=== PATIENT | male | born 1955 | race Caucasian/White ===

== ENCOUNTER 2016-09-15 05:16 | Emergency (ER) | payer OTHER ==
[~2016-09-15] VITALS: Ht 167.6 cm; Wt 70.8 kg
[~2016-09-15 05:16] MED LIST: ASPIRIN EC81 MG PO; ATIVAN1 MG PO; CIALIS5 MG PO; DEXAMETHASONE4 MG PO; IMODIUM A-1 MG/7.5 M PO; LAMISIL250 MG PO; MISOPROSTOL200 MCG PO; NAPROSYN500 MG PO; NITROGLYCERIN0.4 MG SL; ONDANSETRON ODT8 MG PO; PERCOCET 7.5-31 EACH PO; PREDNISONE20 MG PO; PRILOSEC20 MG PO; SENNA8.6 MG PO; SIMVASTATIN80 MG PO; VIAGRA50 MG PO; VICODIN ES 7.51 EAC1 PO
[2016-09-15] MEDS ORDERED: TRAMADOL HCL50 MG PO (06:05)
[2016-09-15] MEDS ORDERED: CLINDAMYCIN HC300 MG PO (06:05)
[2016-12-06] MEDS ORDERED: OMEPRAZOLE20 M1 PO (08:53)
[2016-12-06] MEDS ORDERED: DEPO-TESTO100 MG/1 M IM (08:53)
== END 2016-09-15 06:15 | disposition home or self-care (01) ==
LOC: ED 05:16
DX: K11.21 Acute sialoadenitis (principal); E78.00 Pure hypercholesterolemia, unspecified; Z85.05 Personal history of malignant neoplasm of liver; Z88.0 Allergy status to penicillin; Z88.8 Allergy status to other drugs, medicaments and biological substances; Z79.899 Other long term (current) drug therapy; Z79.82 Long term (current) use of aspirin; Z87.891 Personal history of nicotine dependence
CPT/HCPCS: 99283

== ENCOUNTER 2018-11-04 08:17 | Observation (INO) | payer MEDICARE, OTHER ==
[~2018-11-04] VITALS: Ht 167.6 cm; Wt 61.7 kg
[~2018-11-04 08:17] MED LIST changes: +CLINDAMYCIN HC300 MG PO; +COZAAR100 MG PO; +DEPO-TESTO200 MG/1 M IM; +DIPHENOXYLATE-1 EACH PO; +FLOMAX0.4 MG PO; +GAS-X125 MG PO; +IRON160 MG PO; +LEVOTHYROXINE25 MCG PO; +LISINOPRIL5 MG PO; +OMEPRAZOLE20 M1 PO; +PEPCID20 MG PO; +STIVARGA40 MG PO; +TESSALON PERLE100 MG PO; +TOBRAMYCIN-DEXAM5 ML OPTH; +TRAMADOL HCL50 MG PO
--- OUTSIDE RECORDS SUMMARY | 2018-11-04 08:20 | XMS ---
PreManage Notification: GREY NOE Security [place] [employer] Events No recent Security Events currently on file CRITERIA MET - [facility] PROVIDERS Adama Patrick MD Treatment Current PHONE: Unknown [facility] Other [facility] PHONE: Unknown Yunior has no Care Guidelines for this patient. [place] VISIT COUNT (12 MO.) 1 PATRICIA Lay TOTAL 1 NOTE: Visits indicate total known visits. ED/UCC VISIT TRACKING (12 MO.) 11/04/2018 08:17 PATRICIA [facility] [place] TYPE: Emergency COMPLAINT: - FLANK PAIN INPATIENT VISIT TRACKING (12 MO.) No inpatient visits to display in this time frame [email or web address]
--- NOTE | 2018-11-04 14:26 | NUR ---
STARTED BLOOD TRANSFUSION. EDUCTION ON WHAT TO EXPECT, WHAT TO REPORT. PT VERBALIZED UNDERSTANDING. RN IN ROOM FOR 15 MINUTES. NO REPORTS OF ADVERSE REACTIONS. PT TOLERATING WELL.
--- NOTE | 2018-11-04 15:15 | NUR ---
PT SLEEPING, BLOOD TRANSFUSING WELL. NO ADVERSE REACTIONS NOTED.
--- NOTE | 2018-11-04 16:36 | NUR ---
STARTED SECOND UNIT OF BLOOD. PT TOLERATED FIRST UNIT WELL. NO REPORTS OF ADVERSE SIDE EFFECTS. PT UP TO VOID. REMINDED PT TO MEASURE VOID. PT BACK TO SLEEP.
--- NOTE | 2018-11-04 17:45 | NUR ---
PT IS TOLERATING BLOOD TRANSFUSION WELL. NO COMPLAINTS OF ITCHINESS, HEADACHE, NAUSEA, PAIN.
--- NOTE | 2018-11-04 19:15 | NUR ---
RECEIVED REPORT FROM DAY SHIFT RN. PATIENT IS RESTING IN BED. PATIENT DENIES ANY PAIN. NO NEEDS NOTED. CALL LIGHT IN REACH.
--- NOTE | 2018-11-04 20:45 | NUR ---
PATIENT IS RESTING IN BED. PATIENT IS READY FOR NIGHT MEDICATIONS AND TO GO TO BED. ASKED JOELLEN RN TO TAKE VITALS. PATIENT DENIES ANY NEEDS. CALL LIGHT IN REACH.
--- NOTE | 2018-11-04 21:25 | NUR ---
GAVE REPORT TO CAROL AU AT BEDSIDE. PATIENT DENIES ANY NEEDS. CALL LIGHT IN REACH. CAROL AU REMAINS IN THE ROOM.
--- NOTE | 2018-11-04 21:41 | NUR ---
PT RESTING IN BED AWAKE. ASSESSMENT COMPLETE. HR REGULAR RHYTHM. PT DENIES PAIN AT THIS TIME. PORT FLUSHED WNL, GOOD BLOOD RETURN. IVF INFUSING WNL ORDERED. CALL LIGHT IN REACH. LIGHTS OFF IN ROOM. BED ALARM IN PLACE.
--- NOTE | 2018-11-04 23:00 | NUR ---
SBA TO THE BATHROOM. PATIENT US BACK IN BED. BED ALARM ON. CALL LIGHT IN REACH.
--- NOTE | 2018-11-05 00:26 | NUR ---
CHECKED ON PT. RESTING IN BED WITH EYES CLOSED. BREATHING EQUAL AND UNLABORED. LIGHTS OFF IN ROOM. BED ALARM IN PLACE. IVF INFUSING PORT ORDERED.
--- NOTE | 2018-11-05 01:54 | NUR ---
CALL LIGHT ANSWERED. SBA TO RESTROOM FOR VOID AND BACK TO BED. VSS. PT DENIES PAIN AT THIS TIME. ASSESSMENT COMPLETE. IVF INFUSING PORT ORDERED. CALL LIGHT IN REACH. BED ALARM ON.
--- NOTE | 2018-11-05 03:54 | NUR ---
CALL LIGHT ANSWERED, SBA TO RESTROOM FOR VOID. GAIT STEADY. SAHHBAZ CUENCA REMAINS IN ROOM.
--- NOTE | 2018-11-05 03:56 | NUR ---
CALL LIGHT ANNSWERED. 1 SBA TO THE BATHROOM.
--- NOTE | 2018-11-05 05:37 | NUR ---
LABS DRAWN FROM PORT AND SENT TO LAB, FLUSHED WNL. NEW BAG IVF INFUSING ORDERED. BREAKFAST ORDER OBTAINED. PT DENIES ANY REQUESTS AT THIS TIME. CALL LIGHT IN REACH. LIGHTS OFF IN ROOM. VSS.
--- NOTE | 2018-11-05 05:46 | NUR ---
PT RESTED WELL IN BED THROUGHOUT SHIFT. SBA TO RESTROOM FOR QS VOIDS. IVF INFUSING PORT WNL, BRISK BLOOD RETURN. USING CALL LIGHT APPROPRIATELY.
[2018-11-05] MEDS ORDERED: LEVOTHYROXINE50 MCG PO (09:03)
[2018-11-05] MEDS ORDERED: FAMOTIDINE40 MG PO (09:06)
--- NOTE | 2018-11-05 09:30 | NUR ---
PT SITTING UP IN BED WATCHING TV. ATE MOST OF BREAKFAST, XOCHITL WELL. PT DENIES PAIN OR OTHER CONCERNS AT THIS TIME. ALERT AND ORIENTED. LEFT CHEST PORT ACCESSED AND DRESED WITH PAPER TAPE. DRESSING CDI. CALL LIGHT WITHIN REACH.
--- NOTE | 2018-11-05 11:56 | NUR ---
MED REC COMPLETE
--- NOTE | 2018-11-05 12:20 | NUR ---
PT SITTING UP IN BED. ONLY ATE A SMALL AMOUNT OF LUNCH. DENIES NEEDS OR CONCERNS AT THIS TIME. SBA TO RESTROOM. PT HAS REPORTED BMX3 THIS SHIFT. CALL LIGHT WITHIN REACH.
--- NOTE | 2018-11-05 12:26 | NUR ---
PT SITTING UP IN BED, ALERT, ORIENTED AND WATCHING TV. HE MENTIONED THAT HE SHOULD HAVE COME IN SOONER, BUT GLAD HE CAME WHEN HE DID. PT STILL HAS A QUICK WIT, AND HAS THE ABILITY TO REMAIN CALM AND DEAL WITH DIFFICULT SITUATIONS THEY ARISE. GAVE PT A G.POST, PT REQUESTED PRAYER. WILL FOLLOW NEEDED
--- NOTE | 2018-11-05 15:20 | NUR ---
PT APPEARS TO BE SLEEPING. EYES CLOSED, RESP EVEN AND UNLABORED.
--- NOTE | 2018-11-05 17:43 | NUR ---
PT SITTING UP IN BED EATING DINNER. DENIES PAIN OR OTHER CONERNS. CALL LIGHT WITHIN REACH.
--- NOTE | 2018-11-05 20:20 | NUR ---
RECEIVED REPORT FROM DAY SHIFT RN. PATIENT IS RESTING IN BED. PATIENT DENIES ANY NEEDS. CALL LIGHT IN REACH.
--- NOTE | 2018-11-05 22:10 | NUR ---
PATIENT ASSESMENT COMPLETED. PATIENT IS RESTING IN BED. EVENING MEDICATIONS GIVEN PER ORDER. PATIENT DENIES ANY PAIN. PATIENT DENIES ANY SOB. EVENINM MEDICATONS GIVEN PER ORDER. PATIENT HAS SLIGHTLY ELEVATED TEMP BUT STILL BELOW CALL PARAMETERS. PATIENT REFUSED TYLENOL. VITALS TAKEN AND RECORDED. INTAKE AND OUPUT RECORDED. PATIENT COMPLAINED OF PAINFUL LOOSE BM. PATIENT STATED "IT FEELS LIKE FIRE WHEN IT CAME OUT." PATIENT FLUSHED BM THEREFORE THIS RN COULD NOT OBSERVE BM. EDUCATED PATIENT TO CALL WITH NEXT BM. PATIENT DENIES ANY ABD DISCOMFORT OR NAUSEA. PATIENT DENIES ANY NEEDS. PATIENT HOWEVER COMPLAINS OF A COUGH. CALL LIGHT IN REACH.
--- NOTE | 2018-11-05 22:22 | NUR ---
PLACED CALL TO MD TO REQUEST MEDICATION FOR PATIENTS COUGH. MD GAVE VERBAL ORDER. VERFIED VERBAL ORDER USING THE READBACK METHOD.
--- NOTE | 2018-11-05 22:52 | NUR ---
PATIENT GIVEN PRN MEDICATON PER MAR FOR COUGH. PATIENT DENIES ANY FURTHER NEEDS. CALL LIGHT IN REACH.
--- NOTE | 2018-11-06 00:32 | NUR ---
PATIENT IS RESTING IN BED WITH EYES CLOSED, RR 17. CALL LIGHT IN REACH.
--- NOTE | 2018-11-06 03:15 | NUR ---
PATIENT IS RESTING IN BED WITH EYES CLOSED, RR 17. CALL LIGHT IN REACH.
--- NOTE | 2018-11-06 04:55 | NUR ---
PATIENT RESTED WELL THROUGHOUT THE SHIFT. PATIENT IS ON A 2GM NA LIMIT, TOLERATING WELL, DECREASED APPETITE NOTED-ENSURE PROVIDED. PATIENT IS INDEPENDENT IN THE ROOM. IV INFUSING PER ORDER. PATIENT IS ON RA. PATIENT DENIES PAIN. PATIENT IS AAOX3 AND USES CALL LIGHT APPROPRIATELY. RECEIVED PRN COUGH MEDICATION X1.
--- NOTE | 2018-11-06 06:07 | NUR ---
PT DRESSING CHANGED ON L SIDED PORT-A-CATH. NO SIGNS OF INFECTION. PT STATES NO DISCOMFORT. GOOD BLOOD RETURN. FLUSHES EASILY. LABS DRAWN. INFUSING PER ORDER. VS/INPUT OUTPUT RECORDED. PT STATES NO ADDITIONAL NEEDS AT THIS TIME.
--- NOTE | 2018-11-06 07:15 | NUR ---
BEDSIDE HANDOFF REPORT RECEIVD FROM VEHICLE WINDOW TINTER RN. PT SLEEPING, LEFT UNDISTURBED.
[2018-11-06] MEDS ORDERED: FAMOTIDINE40 MG PO (09:13)
--- NOTE | 2018-11-06 09:22 | NUR ---
IMPLANTED PORT FLUSHED WITH 20 ML NS AND 500 UNITS HEPRIN, PORT DEACCESSED FOR DISCHARGE. PT SET UP FOR SHOWER BEFORE DISCHARGE. PT DENIES OTHER NEEDS AT THIS TIME.
--- NOTE | 2018-11-06 13:05 | NUR ---
MET WITH PT HE WAS WAITING FOR HIS CARERIDE HOME.PT SHARED HE WILL DO ONE LAST DIFFERENT CHEMO DRUG. IN HIS MIND, SOME CHANCE IS BETER THAN NONE, AND MOST PT ON THIS CHEMO HAVE SEVERE SIDE EFFECTS, BUT SOME DON'T! HE IS HOPING AND PRAYING TO BE THE SOME. HAD GOOD VISIT WITH PT, HE IS WEAK. I ENCOURAGED HIM TO STAY IN TOUCH WITH HIS SON, HE AGREED. EXTENDED A BLESSING, WILL ALSO FOLLOW NEEDED
== END 2018-11-06 10:25 | disposition home or self-care (01) ==
LOC: ED 08:17 → MS 08:18
PROVIDERS: ADMIT Internal Medicine
DX: C18.9 Malignant neoplasm of colon, unspecified (principal); D63.0 Anemia in neoplastic disease; N17.9 Acute kidney failure, unspecified; C79.51 Secondary malignant neoplasm of bone; C78.7 Secondary malignant neoplasm of liver and intrahepatic bile duct; C77.0 Secondary and unspecified malignant neoplasm of lymph nodes of head, face and neck; E03.9 Hypothyroidism, unspecified; N40.0 Benign prostatic hyperplasia without lower urinary tract symptoms; I10 Essential (primary) hypertension; K21.9 Gastro-esophageal reflux disease without esophagitis; D72.829 Elevated white blood cell count, unspecified; G89.3 Neoplasm related pain (acute) (chronic); Z66 Do not resuscitate; Z87.891 Personal history of nicotine dependence; Z79.82 Long term (current) use of aspirin; Z79.899 Other long term (current) drug therapy; Z88.0 Allergy status to penicillin; Z88.8 Allergy status to other drugs, medicaments and biological substances; Z95.1 Presence of aortocoronary bypass graft
CPT/HCPCS: 36430; 74176; 80053; 81001; 82378; 82570; 82607; 82728; 82746; 83540; 83615; 83690; 84300; 84466; 84540; 85025; 86850; 86900; 86901; 86920; 96361; 96365; 96372; 99284-25; G0378; J0696; J1650; J7030; J7120; P9016

== ENCOUNTER 2018-12-04 07:37 | Emergency (ER) | payer MEDICARE, OTHER ==
[~2018-12-04] VITALS: Ht 167.6 cm; Wt 68.0 kg
--- OUTSIDE RECORDS SUMMARY | ~2018-12-04 | XMS | Encounter Summary ---
Demographics + + + | Address | [id number] [place] [address] St | | | [place] [address] | + + + | Home Phone | | + + + | Preferred Language | Unknown | + + + | Marital Status | Single | + + + | Buddhism Affiliation | Unknown | + + + | Race | White | + + + | Ethnic Group | Not or | + + + Author + + + | Author | [facility] | + + + | Organization | [facility] | + + + | Address | Unknown | + + + | Phone | Unavailable | + + + Support + + +---------+ + | Name | Relationship | Address | Phone | + + +---------+ + | [place] | ECON | Unknown | Unavailable | + + +---------+ + Care Team Providers + +------+ + | Care Pleater Hand Name | Role | Phone | + +------+ + | Adama Patrick MD | PCP | | + +------+ + Reason for Visit + + + | Reason | Comments | + + + | Tx Recommendation | | | Tracking | | + + + Encounter Details +--------+ + + + + | Date | Type | Department | Care Team | Description | +--------+ + + + + | 07/21/ | Abstract | [facility] | Adriana Briones | Tx Recommendation | | 2015 | | [place] [id number] | MD [place] [address] | Tracking | | | | [address] | Ave [place], [place] | | | | | Mailcode: [place] | [phone] | | | | | [facility] and | [phone] | | | | | [place] [address] | | | | | | [place], [place] | | | | | | [address] | | | | | | [phone] | | | +--------+ + + + + Social History + + + +--------+ + | Tobacco Use | Types | Packs/Day | Years | Date | | | | | Used | | + + + +--------+ + | Former Smoker | Cigarettes | 1 | 20 | Quit: 12/18/1994 | + + + +--------+ + + +---+---+---+ | Smokeless Tobacco: | | | | | Former User | | | | + +---+---+---+ + + | Comments: reports quit a while ago, but smoked for "many years" | + + + + +---------+ + | Alcohol Use | Drinks/Week | oz/Week | Comments | + + +---------+ + | No | | | quit 6 months ago, | | | | | used to drink 6-12 | | | | | beers/day | + + +---------+ + + + + | Sex Assigned at | Date Recorded | | | | + + + | Not on file | | + + + + + + + | Job Start Date | Occupation | Industry | + + + + | Not on file | Not on file | Not on file | + + + + + + + + | Travel History | Travel Start | Travel End | + + + + + + | No recent travel history available. | + + documented as of this encounter Plan of Treatment Not on filedocumented as of this encounter Visit Diagnoses Not on filedocumented in this encounter
--- OUTSIDE RECORDS SUMMARY | ~2018-12-04 | XMS | Encounter Summary ---
Demographics + + + | Address | [address] [place] [address] St | | | [place] [address] | + + + | Home Phone | | + + + | Preferred Language | Unknown | + + + | Marital Status | Single | + + + | Lutheran Affiliation | Unknown | + + + | Race | White | + + + | Ethnic Group | Not or | + + + Author + + + | Author | [facility] | + + + | Organization | [facility] | + + + | Address | Unknown | + + + | Phone | Unavailable | + + + Support + + +---------+ + | Name | Relationship | Address | Phone | + + +---------+ + | Keri Lake | ECON | Unknown | Unavailable | + + +---------+ + Care Team Providers + +------+ + | Care Lean Facilitator Name | Role | Phone | + +------+ + | Luis Bermudez MD | PCP | | + +------+ + Reason for Referral Diagnostic Testing (Routine) + +--------+ + + + + | Status | Reason | Specialty | Diagnoses / | Referred By | Referred To | | | | | Procedures | Contact | Contact | + +--------+ + + + + | New Request | | Radiology | Diagnoses | Majo, | | | | | | Liver | Sarah Ramirez MD | | | | | | metastases | [address] | | | | | | (HCC) | [facility] | | | | | | Neuroendocri | [address] | | | | | | ne tumor | [facility] [place] | | | | | | Procedures | [address] | | | | | | PET GA68 | Phone: | | | | | | DOTATATE | [phone] | | | | | | SKULL BASE | Fax: | | | | | | TO [facility] | [phone] | | + +--------+ + + + + Diagnostic Testing (Routine) + +--------+ + + + + | Status | Reason | Specialty | Diagnoses / | Referred By | Referred To | | | | | Procedures | Contact | Contact | + +--------+ + + + + | New Request | | Radiology | Diagnoses | Majo, | | | | | | Liver | Sarah Ramirez MD | | | | | | metastases | [address] | | | | | | (HCC) | [facility] | | | | | | Neuroendocri | [address] | | | | | | ne tumor | [place], [place] | | | | | | Procedures | [address] | | | | | | PET GA68 | Phone: | | | | | | DOTATATE | [phone] | | | | | | SKULL BASE | Fax: | | | | | | TO [facility] | [phone] | | + +--------+ + + + + Reason for Visit Diagnostic Testing (Routine) + +--------+ + + + + | Status | Reason | Specialty | Diagnoses / | Referred By | Referred To | | | | | Procedures | Contact | Contact | + +--------+ + + + + | New Request | | Radiology | Diagnoses | Majo, | | | | | | Liver | Sarah aRmirez MD | | | | | | metastases | [address] | | | | | | (HCC) | [facility] | | | | | | Neuroendocri | [address] | | | | | | ne tumor | [place], [place] | | | | | | Procedures | [address] | | | | | | PET GA68 | Phone: | | | | | | DOTATATE | [phone] | | | | | | SKULL BASE | Fax: | | | | | | TO [facility] | [phone] | | + +--------+ + + + + Encounter Details +--------+ + + + + | Date | Type | Department | Care Team | Description | +--------+ + + + + | 01/18/ | Hospital | Radiation Oncology | Sarah Kasper, | | | 2018 | Encounter | at [facility] [address] | [address] | | | | | [facility] | [place] [address] | | | | | [facility] | [place] [address] | | | | | [facility] | [phone] | | | | | [place], [place] | | | | | | [address] | | | | | | [phone] | | | +--------+ + + + [...] + + documented as of this encounter Medications at Time of Discharge + + + +---------+--------+ + | Medication | Sig | Dispensed | Refills | Start | End Date | | | | | | Date | | + + + +---------+--------+ + | aspirin EC 81 mg | Take 81 mg by mouth | | 0 | | | | Oral tablet,delayed | once daily. | | | | | | release (DR/EC) | | | | | | + + + +---------+--------+ + | Gallium Nitrate 25 | Inject into the | | 0 | | | | mg/mL Intravenous | vein (IV). Patient | | | | | | Solution | reports gallium | | | | | | | maltolate ("special | | | | | | | mix") from family | | | | | | | member. | | | | | + + + +---------+--------+ + | loperamide 2 mg | Take 2 mg by mouth | | 0 | | | | Oral capsule | four times daily as | | | | | | | needed. | | | | | + + + +---------+--------+ + | LORazepam 1 mg | Take 1 mg by mouth | | 0 | | | | Oral tablet | every four hours as | | | | | | | needed. | | | | | + + + +---------+--------+ + | omeprazole 20 mg | Take 20 mg by mouth | | 0 | | | | Oral capsule,delayed | once daily. | | | | | | release(/DOMINIC) | | | | | | + + + +---------+--------+ + | sildenafil 10 mg | Take by mouth. | | 0 | | | | Oral tablet | | | | | | + + + +---------+--------+ + | simvastatin 80 mg | Take 80 mg by mouth | | 0 | | | | Oral tablet | once daily in the | | | | | | | evening. | | | | | + + + +---------+--------+ + documented as of this encounter Plan of Treatment Not on filedocumented as of this encounter Procedures + +--------+ + + + | Procedure Name | Priori | Date/Time | Associated Diagnosis | Comments | | | ty | | | | + +--------+ + + + | PET GA68 DOTATATE | Routin | 01/18/2018 | Liver metastases | Results for this | | SKULL BASE TO | e | 1:22 PM | (HCC) | procedure are in the | | [facility] | | PST | Neuroendocrine tumor | results section. | + +--------+ + + + | ORDERS OTHER | | 01/18/2018 | | Results for this | | | | 12:00 AM | | procedure are in the | | | | PST | | results section. 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 This PET/CT scan is requested for | | | evaluation of response to therapy. COMPARISON: Outside PET imaging | | | from 12/17/2017 is not available for review. Comparison made to FDG | | | PET 04/25/2017 TECHNIQUE: Radiopharmaceutical: 4.5 mCi of | | | 68-Ga DOTATATE, injected via a right antecubital intravenous | | | injection. Anatomical region: vertex to midthighs. After an | | | uptake period of 60 minutes, a low-dose, non-contrast CT scan was | | | performed for attenuation correction and anatomic localization. | | | Immediately following, and without moving the patient, PET imaging was | | | performed. Axial, sagittal, and coronal images were available for | | | review. FINDINGS: Head and neck: Physiologic uptake is | | | seen in the pituitary and salivary glands. There are no | | | pathologically enlarged lymph nodes. The thyroid gland is | | | unremarkable. Thorax: There are no suspicious pulmonary nodules. | | | No foci of abnormal uptake or pathologically enlarged mediastinal, | | | hilar, or axillary lymphadenopathy. Left upper lobe subpleural | | | granuloma is unchanged. Left chest Port-A-Cath tip terminates at the | | | superior cavoatrial junction. Abdomen and pelvis: Physiologic | | | uptake in the spleen, adrenal glands, and bowel. Physiologic | | | radiotracer clearance is seen in the urinary system. No abnormal foci | | | of uptake. No pathologically enlarged lymphadenopathy. The | | | abdominal aorta is normal in caliber. There is physiologic uptake | | | throughout the liver. The large, FDG avid, hypodense lesions in both | | | lobes of the liver have significantly increased since 04/25/17, but | | | don't show DOTATATE uptake. Physiologic uptake in the uncinate | | | process Musculoskeletal: No suspicious osseous lesions. | | | Changes of prior median sternotomy. There is nonspecific faint | | | DOTATATE uptake and faint sclerosis in the left iliac bone, unchanged | | | from prior. IMPRESSION: Increase in size of hepatic | | | metastases compared to prior PET/CT, the lesions showed FDG uptake | | | previously but do not display somatostatin receptor expression. This | | | rules out well-differentiated neuroendocrine tumor, but can be seen | | | with either de-differentiated neuroendocrine tumor or other | | | malignancies. I have personally reviewed the images and, if | | | necessary, edited the report. I agree with the report as now | | | presented. Final signature: Maribell Slater MD 01/18/2018 6:24 | | | PM Preliminary: Joseph Torres MD 01/18/2018 3:59 PM Dictation | | | initiated: Joseph Torres MD 01/18/2018 2:17 PM | | + + + + + | Procedure Note | + + | Service Account, Radiant Res In Interface - 01/18/2018 6:25 PM PST Ga-68 DOTATATE | | PET-CT: 01/18/2018 1:22 PM CLINICAL HISTORY: 62 years of age, Male, with history of | | possible colon cancer metastatic to liver, with liver biopsy 2015 more consistent with | | atypical presentation neuroendocrine tumor, now status post multiple rounds of | | chemotherapy, with evidence of disease progression on chemotherapy on most recent PET | | 12/17/2017 . This PET/CT scan is requested for evaluation of response to therapy. | | COMPARISON: Outside PET imaging from 12/17/2017 is not available for review. Comparison | | made to FDG PET 04/25/2017 TECHNIQUE: Radiopharmaceutical: 4.5 mCi of 68-Ga DOTATATE, | | injected via a right antecubital intravenous injection. Anatomical region: vertex to | | midthighs.After an uptake period of 60 minutes, a low-dose, non-contrast CT scan was | | performed for attenuation correction and anatomic localization. Immediately following, | | and without moving the patient, PET imaging was performed. Axial, sagittal, and coronal | | images were available for review. FINDINGS: Head and neck: Physiologic uptake is seen | | in the pituitary and salivary glands. There are no pathologically enlarged lymph nodes. | | The thyroid gland is unremarkable. Thorax: There are no suspicious pulmonary nodules. No | | foci of abnormal uptake or pathologically enlarged mediastinal, hilar, or axillary | | lymphadenopathy. Left upper lobe subpleural granuloma is unchanged. Left chest | | Port-A-Cath tip terminates at the superior cavoatrial junction. Abdomen and pelvis: | | Physiologic uptake in the spleen, adrenal glands, and bowel.Physiologic radiotracer | | clearance is seen in the urinary system.No abnormal foci of uptake.No pathologically | | enlarged lymphadenopathy.The abdominal aorta is normal in caliber. There is physiologic | | uptake throughout the liver. The large, FDG avid, hypodense lesions in both lobes of the | | liver have significantly increased since 04/25/17, but don't show DOTATATE | | uptake.Physiologic uptake in the uncinate process Musculoskeletal: No suspicious osseous | | lesions. Changes of prior median sternotomy. There is nonspecific faint DOTATATE uptake | | and faint sclerosis in the left iliac bone, unchanged from prior. IMPRESSION: | | Increase in size of hepatic metastases compared to prior PET/CT, the lesions showed FDG | | uptake previously but do not display somatostatin receptor expression. This rules out | | well-differentiated neuroendocrine tumor, but can be seen with either de-differentiated | | neuroendocrine tumor or other malignancies. I have personally reviewed the images | | and, if necessary, edited the report. I agree with the report as now presented. Final | | signature: Maribell Slater MD 01/18/2018 6:24 PM Preliminary: Joseph Torres MD | | 01/18/2018 3:59 PM Dictation initiated: Joseph Torres MD 01/18/2018 2:17 PM | |There is physiologic uptake throughout the liver. The large, FDG avid, hypodense lesions in both lobes of the liver have significantly increased since 04/25/17, but don't show DOTATATE uptake. | |Physiologic uptake in the uncinate process | | | |Musculoskeletal: | |No suspicious osseous lesions. | | | |Changes of prior median sternotomy. There is nonspecific faint DOTATATE uptake and faint sc lerosis in the left iliac bone, unchanged from prior. | | | |IMPRESSION: | | | |Increase in size of hepatic metastases compared to prior PET/CT, the lesions showed FDG upt mariana previously but do not display somatostatin receptor expression. This rules out well-diff erentiated neuroendocrine | |tumor, but can be seen with either de-differentiated neuroendocrine tumor or other malignan cies. | | | | | | | |I have personally reviewed the images and, if necessary, edited the report. I agree with th e report as now presented. | | | |Final signature: Maribell Slater MD 01/18/2018 6:24 PM | |Preliminary: Joseph Torres MD 01/18/2018 3:59 PM | |Dictation initiated: Joseph Torres MD 01/18/2018 2:17 PM | + + + +---------+ + + | Performing | Address | City/State/Zipcode | Phone Number | | Organization | | | | + +---------+ + + | [facility] | | | | | VOICE RECOGNITION 2 | | | | + +---------+ + + ORDERS OTHER (01/18/2018 12:00 AM PST) + + + | Narrative | Performed At | + + + | | | + + + documented in this encounter Visit Diagnoses + + | Diagnosis | + + | Liver metastases (HCC) Secondary malignant neoplasm of liver | + + | 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
--- OUTSIDE RECORDS SUMMARY | ~2018-12-04 | XMS | Encounter Summary ---
Demographics + + + | Address | [address] [place] [address] St | | | [place] [address] | + + + | Home Phone | | + + + | Preferred Language | Unknown | + + + | Marital Status | Single | + + + | Scientologist Affiliation | Unknown | + + + | Race | White | + + + | Ethnic Group | Not or | + + + Author + + + | Author | [facility] | + + + | Organization | [facility] | + + + | Address | Unknown | + + + | Phone | Unavailable | + + + Support + + +---------+ + | Name | Relationship | Address | Phone | + + +---------+ + | [place]eri [place] | ECON | Unknown | Unavailable | + + +---------+ + Care Team Providers + +------+ + | Care Painter Supervisor Name | Role | Phone | + +------+ + | Adama Patrick MD | PCP | | + +------+ + Reason for Visit + + + | Reason | Comments | + + + | Conference Report | 12-24-12 LALT recs | + + + Encounter Details +--------+ + + + + | Date | Type | Department | Care Team | Description | +--------+ + + + + | 12/25/ | Documentati | Surgical Oncology | Emely, | Conference Report | | 2012 | on | at [facility] [address] | MD Sukhdeep [address] | (12-24-12 [facility] | | | | [place] Mail Code: | [place], | recs) | | | | [facility] | [place] [address] | | | | | and Healing, | [phone] | | | | | [address] | | | | | | [place], [place] | | | | | | [address] | | | | | | [phone] | | | +--------+ + + + [...]
--- OUTSIDE RECORDS SUMMARY | ~2018-12-04 | XMS | Encounter Summary ---
Demographics + + + | Address | [address] [place] [address] St | | | [place] [address] | + + + | Home Phone | | + + + | Preferred Language | Unknown | + + + | Marital Status | Single | + + + | Bahai Affiliation | Unknown | + + + | Race | White | + + + | Ethnic Group | Not or | + + + Author + + + | Author | [facility] | + + + | Organization | [facility] | + + + | Address | Unknown | + + + | Phone | Unavailable | + + + Support + + +---------+ + | Name | Relationship | Address | Phone | + + +---------+ + | [place]eri [place] | ECON | Unknown | Unavailable | + + +---------+ + Care Team Providers + +------+ + | Care Photovoltaic Solar Cell Designer Name | Role | Phone | + +------+ + | Adama Patrick MD | PCP | | + +------+ + Reason for Visit + + + | Reason | Comments | + + + | New patient | | | consultation | | + + + Consultation (Routine) + +--------+ + + + + | Status | Reason | Specialty | Diagnoses / | Referred By | Referred To | | | | | Procedures | Contact | Contact | + +--------+ + + + + | Pending | | Surgical | Diagnoses | | | | Review | | Oncology | colon | Senthil, | Emely | | | | | cancer | Joseph Padilla, | MD Sukhdeep | | | | | w/liver mets | [address] | [address] | | | | | | [address] | Ave | | | | | | [place], | [place], [place] | | | | | | [place] [address] | [address] | | | | | | Phone: | Phone: | | | | | | [phone] | [phone] | | | | | | Fax: | Fax: | | | | | | [phone] | [phone] | + +--------+ + + + + Encounter Details +--------+---------+ + + + | Date | Type | Department | Care Team | Description | +--------+---------+ + + + | 12/18/ | Office | Surgical Oncology | Emely, | Liver lesion | | 2012 | Visit | at [facility] [address] | MD Sukhdeep [address] | (Primary Dx) | | | | [place] Mail Code: | [place], | | | | | [facility] | [place] [address] | | | | | and Healing, | [phone] | | | | | [address] | | | | | | [place], [place] | | | | | | [address] | | | | | | [phone] | | | +--------+---------+ + + + Social History + +-------+ +--------+ + | Tobacco Use | Types | Packs/Day | Years | Date | | | | | Used | | + +-------+ +--------+ + | Former Smoker | | | | Quit: 12/18/1994 | + +-------+ +--------+ + + +---+---+---+ | Smokeless Tobacco: | | | | | Former User | | | | + +---+---+---+ + + +---------+ + | Alcohol Use | Drinks/Week | oz/Week | Comments | + + +---------+ + | Not Asked | | | | + + +---------+ + + + [...] + + documented as of this encounter Last Filed Vital Signs + + + + + | Vital Sign | Reading | Time Taken | Comments | + + + + + | Blood Pressure | 122/79 | 12/18/2012 2:18 PM | | | | | PDT | | + + + + + | Pulse | 67 | 12/18/2012 2:18 PM | | | | | PDT | | + + + + + | Temperature | 37.1 C (98.7 F) | 12/18/2012 2:18 PM | | | | | PDT | | + + + + + | Respiratory Rate | 15 | 12/18/2012 2:18 PM | | | | | PDT | | + + + + + | Oxygen Saturation | - | - | | + + + + + | Inhaled Oxygen | - | - | | | Concentration | | | | + + + + + | Weight | 68.9 kg (151 lb 14.4 | 12/18/2012 2:18 PM | | | | oz) | PDT | | + + + + + | Height | - | - | | + + + + + | Body Mass Index | - | - | | + + + + + documented in this encounter Patient Instructions Patient Instructions Joelle Slaughter RN - 12/18/2012 2:52 PM PDTDr. Emely will revi ew your case at the Liver Tumor Conference and call you with the recommendations from the aurelia. Please call if you have any questions. [phone] signed by Joelle Slaughter RN at 12/18/2012 2:53 PM PDT documented in this encounter Progress Notes Sukhdeep Lopez MD - 12/18/2012 2:22 PM PDT SURGICAL ONCOLOGY CLINIC INITIAL CONSULTATION James Lake is an 57 y.o. male, who is referred by Joseph Ndiaye, for esther luation and management of multiple liver lesions. HPI: Mr. Lake is a 57 y.o. male who presented to his PCP in June 2012 with RUQ pain, weigh t loss and early satiety. CT scan was performed that demonstrated multiple liver lesions. He underwent a laparoscopic exploration by Dr. Collins in July 2012, on which a diffusely maligna nt liver was noted. Two biopsies were obtained from the liver and showed deposits of matt ocarcinoma . A [address] was noted on chest CT, however there was no evidence of pulmonary metastasis. His abdominal CT scan was re-reviewed and a potential primary mass wa s noted in the ascending colon. A PET scan was done in August and demonstrated diffusely malig nant liver metastasis and the same potential primary. Mr. Lake then received 6 cycles on FOLFOX/Avastin between August 14 and October 30 2012. His s ymptoms gradually improved during the course of chemotherapy and he was able to gain some we ight. PET/CT was repeated in October and showed overall decrease in liver size but more liver lesions. The SUV of the lesions has decreased from 8.17-10.17 to 3.48-4.10 Coronary artery disease Headache Arthritis Cancer Seizure Chronic pain VASECTOMY NASAL SEPTUM REPAIR Current Outpatient Prescriptions Medication aspirin EC 81 mg Oral tablet,delayed release (DR/EC) Gallium Nitrate 25 mg/mL Intravenous Solution loperamide 2 mg Oral capsule LORazepam 1 mg Oral tablet Milk Thistle 300 mg Oral capsule omeprazole 20 mg Oral capsule,delayed release(DR/EC) sildenafil 10 mg Oral tablet simvastatin 80 mg Oral tablet No current facility-administered medications for this visit. Allergies Allergen Reactions Penicillin G Rash Social History: History Substance Use Topics Smoking status: Former Smoker Quit date: 12/18/1994 Smokeless tobacco: Former User Alcohol Use: Not on file Family History Problem Relation Alcohol/Drug Brother Alcohol/Drug Maternal Grandfather Anesthesia Mother Anesthesia Father Anesthesia Maternal Grandmother Anesthesia Maternal Grandfather Anesthesia Paternal Grandmother Anesthesia Paternal Grandfather Diabetes Mother Diabetes Paternal Grandmother GI Father GI Paternal Grandfather Heart Disease Father Heart Disease Paternal Grandmother Heart Disease Paternal Grandfather Psychiatry Brother Stroke Maternal Grandmother Alcohol/Drug Son Alcohol/Drug Maternal Aunt Alcohol/Drug Maternal Cousin Allergies Maternal Cousin Anesthesia Maternal Cousin Anesthesia Paternal Uncle Anesthesia Maternal Uncle Anesthesia Maternal Aunt Allergies Paternal Cousin Anesthesia Paternal Uncle Arthritis Paternal Uncle Asthma Paternal Uncle Asthma Paternal Cousin GI Maternal Aunt GI Paternal Uncle Heart Disease Paternal Uncle Heart Disease Paternal Cousin Stroke Maternal Uncle Review of Systems: All other systems negative. Examination: BP 122/79 | Pulse 67 | Temp (Src) 37.1 C (98.7 F) (Oral) | RR 15 | Wt 68.9 01 kg (151 lb 14.4 oz) General: Healthy appearing but overweight. Appearing their stated age. Eyes: Sclerae anicteric. ENMT: No oral lesions. Neck: Supple, no carotid bruits,no thyromegaly. Cardiac: Regular rate and rhythm, S1 S2 Nl, no M/R/G/. Chest: CTA Bilaterally. Lymph nodes: No lymphadenopathy in the neck supraclavicular or other areas. Extremities: 2/2 bilateral pulses, no edema. Skin: Warm, dry, no rashes or lesions, no spider angiomata. Neuro: A & 0 *3, non-focal Psych: Alert and oriented and appropriate in all spheres. Abdomen: Bowel sounds present, soft, NT/ND, no Hepatosplenomegaly. No masses. Assessment: James Lake is an 57 y.o. male, who is referred for evaluation and m anagement of metastatic adenocarcinoma involving the liver. This is quite likely colon canc er although a primary has never been clearly identified. He has extensive, multifocal and bilateral disease. Due to the multiplicity of lesions I believe liver directed therapy will have limited impa ct on his overall survival. He is certainly not a candidate for resection. RFA is also not a viable option. I suspect he will derive the most benefit from continued Systemic the rapy. I have also arranged for him to consult with the IR service here at [facility] for consideration of catheter based therapy. I suspect this would be more helpful if he had one or two domina nt lesions that were progressing. Plan: 1) Consult with [facility] IR Service to discuss potential catheter based treatments. 2) I have recommended that given the size and multiplicity of his liver lesions that he wo uld be best served with systemic therapy as long as he is getting some measure of disease co ntrol. SUKHDEEP LOPEZ MD Chief Division of Surgical Oncology [facility] afternoon nanny [id number] [place], [place] [address] documented in this encounter Plan of Treatment Not on filedocumented as of this encounter Visit Diagnoses + + | Diagnosis | + + | Liver lesion - Primary Other specified disorders of liver | + + documented in this encounter"
--- OUTSIDE RECORDS SUMMARY | ~2018-12-04 | XMS | Encounter Summary ---
Demographics + + + | Address | [address] [place] [address] St | | | [place] [address] | + + + | Home Phone | | + + + | Preferred Language | Unknown | + + + | Marital Status | Single | + + + | Christianity Affiliation | Unknown | + + + | Race | White | + + + | Ethnic Group | Not or | + + + Author + + + | Author | [facility] | + + + | Organization | [facility] | + + + | Address | Unknown | + + + | Phone | Unavailable | + + + Support + + +---------+ + | Name | Relationship | Address | Phone | + + +---------+ + | Keri Lake | ECON | Unknown | Unavailable | + + +---------+ + Care Team Providers + +------+ + | Care Rigging Man Name | Role | Phone | + [...] | | | | | metastases | [address] | | | | | | (HCC) | [facility] | | | | | | Neuroendocri | [address] | | | | | | ne tumor | [facility] [place] | | | | | | Procedures | [address] | | | | | | PET GA68 | Phone: | | | | | | DOTATATE | [phone] | | | | | | SKULL BASE | Fax: | | | | | | TO MID-THIGH | [phone] | | + +--------+ + + + + Reason for Visit + + + | Reason | Comments | + + + | Tumor Board | | | Recommendation | | + + + Encounter Details +--------+ + + + + | Date | Type | Department | Care Team | Description | +--------+ + + + + | 12/27/ | Case Management Rn | Hematology/Medical | Sarah Kasper, | Liver metastases | | 2018 | | [facility] | [address] | (HCC) (Primary Dx); | | | | [facility] | [address] | Neuroendocrine tumor | | | | [address] | [place] [address] | | | | | Mailcode: Center | [phone] | | | | | for Health and | | | | | | Healing, [address] | | | | | | [place], [place] | | | | | | [address] | | | | | | [phone] | | | +--------+ + + + [...] Not on filedocumented as of this encounter Results PET GA68 DOTATATE SKULL [...] necessary, edited the report. I agree with e report as now presented. 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
--- OUTSIDE RECORDS SUMMARY | ~2018-12-04 | XMS | Encounter Summary ---
Demographics + + + | Address | [id number] [place] [address] St | | | [place] [address] | + + + | Home Phone | | + + + | Preferred Language | Unknown | + + + | Marital Status | Single | + + + | Jew Affiliation | Unknown | + + + | Race | White | + + + | Ethnic Group | Not or | + + + Author + + + | Author | [facility] | + + + | Organization | [facility] | + + + | Address | Unknown | + + + | Phone | Unavailable | + + + Support + + +---------+ + | Name | Relationship | Address | Phone | + + +---------+ + | Keri [place] | ECON | Unknown | Unavailable | + + +---------+ + Care Team Providers + +------+ + | Care Outbound Sales Specialist Name | Role | Phone | + +------+ + | Adama Patrick MD | PCP | | + +------+ + Reason for Visit Diagnostic Testing (Routine) +--------+--------+ + + + + | Status | Reason | Specialty | Diagnoses / | Referred By | Referred To | | | | | Procedures | Contact | Contact | +--------+--------+ + + + + | Closed | | Radiology | Diagnoses | | Rad Ct Scan | | | | | Secondary | Emely, | s [address] | | | | | malignant | MD Sukhdeep | [place] [facility] | | | | | neoplasm of | [address] | [place] | | | | | liver (HCC) | Ave | Mailcode: | | | | | Malignant | [place], [place] | [address] [facility] | | | | | neoplasm of | [address] | [facility] | | | | | colon, | Phone: | [place], [place] | | | | | unspecified | [phone] | [address] | | | | | site | Fax: | Phone: | | | | | Procedures | [phone] | [phone] | | | | | CT CHEST, | | Fax: | | | | | ABDOMEN & | | [phone] | | | | | PELVIS WWO | | | | | | | IV CONTRAST | | | | | | | PA CAT SCAN | | | | | | | OF CHEST | | | | | | | COMBO PA CT | | | | | | | ABD&PELV 1+ | | | | | | | | | | | | | | SECTION/REGN | | | | | | | S | | | +--------+--------+ + + + + Encounter Details +--------+ + + + + | Date | Type | Department | Care Team | Description | +--------+ + + + + | 12/18/ | Hospital | Diagnostic Imaging | | | | 2012 | Encounter | Services at [facility] | | | | | | [address] | | | | | | [place] Mailcode: | | | | | | [address] [facility] | | | | | | [place], [place] | | | | | | [address] | | | | | | [phone] | | | +--------+ + + + + Social History + +-------+ [...] | + +--------+ + + + | PROCEDURE NOTE | Routin | 04/08/2015 | | Results for this | | | e | 9:07 PM | | procedure are in the | | | | PST | | results section. | + +--------+ + + + documented in this encounter Results PROCEDURE NOTE (04/08/2015 9:07 PM PST) + + | Transcriptions | + + | Agustin Prasad - 12/21/2012 7:49 AM PDT | + + documented in this encounter Visit Diagnoses + + | Diagnosis | + + | Secondary malignant neoplasm of liver (HCC) Secondary malignant neoplasm of liver | + + | Malignant neoplasm of colon, unspecified site | + + documented in this encounter
--- OUTSIDE RECORDS SUMMARY | ~2018-12-04 | XMS | Encounter Summary ---
Demographics + + + | Address | [id number] [place] [address] St | | | [place] [address] | + + + | Home Phone | | + + + | Preferred Language | Unknown | + + + | Marital Status | Single | + + + | Restorationist Affiliation | Unknown | + + + | Race | White | + + + | Ethnic Group | Not or | + + + Author + + + | Author | [facility] | + + + | Organization | [facility] | + + + | Address | Unknown | + + + | Phone | Unavailable | + + + Support + + +---------+ + | Name | Relationship | Address | Phone | + + +---------+ + | Keri Lake | ECON | Unknown | Unavailable | + + +---------+ + Care Team Providers + +------+ + | Care Clerical Associate Name | Role | Phone | + [...] | | | | | Liver | Luis Alberto Ramirez MD | | | | | | metastases | [address] | | | | | | (HCC) | [address] | | | | | | Malignant | [address] | | | | | | neoplasm of | [place], [place] | | | | | | ascending | [address] | | | | | | colon (HCC) | Phone: | | | | | | Procedures | [phone] | | | | | | CT CHEST, | Fax: | | | | | | ABDOMEN AND | [phone] | | | | | | PELVIS W IV | | | | | | | CONTRAST | | | + +--------+ + + [...] | | | | | Liver | Luis Alberto Ramirez MD | | | | | | metastases | [address] | | | | | | (HCC) | [address] | | | | | | Procedures | [address] | | | | | | CT CHEST, | [place], [place] | | | | | | ABDOMEN AND | [address] | | | | | | PELVIS W IV | Phone: | | | | | | CONTRAST | [phone] | | | | | | | Fax: | | | | | | | [phone] | | + +--------+ + + + + Reason for Visit Intake Referral (Routine) + +---------+ + + + + | Status | Reason | Specialty | Diagnoses / | Referred By | Referred To | | | | | Procedures | Contact | Contact | + +---------+ + + + + | Referred | Other | Hematology & | Diagnoses | Non-[facility] | [facility]o, | | | | Oncology | colon | Epic Dept | Luis Alberto Ramirez MD | | | | | cancer [facility] | | [address] | | | | | to liver | | [facility] | | | | | | | [facility] [address] | | | | | | | [place], [place] | | | | | | | [address] Phone: | | | | | | | [phone] | | | | | | | Fax: | | | | | | | [phone] | + +---------+ + + + + Encounter Details +--------+---------+ + + + | Date | Type | Department | Care Team | Description | +--------+---------+ + + + | 12/17/ | Office | Hematology/Medical | Luis Alberto Kasper, | Liver metastases | | 2018 | Visit | Oncology at Center | [address] | (HCC) (Primary Dx); | | | | for Health & Healing | Road [address] | Malignant neoplasm | | | | [address] | [place] [address] | of ascending colon | | | | Mailcode: [place] | [phone] | (HCC) | | | | for Health and | | | | | | Healing, [facility] [address] | | | | | | [place], [place] | | | | | | [address] | | | | | | [phone] | | | +--------+---------+ + + + Social History + + [...] + + + | Blood Pressure | 140/90 | 12/17/2017 3:00 PM | | | | | PDT | | + + + + + | Pulse | 69 | 12/17/2017 3:00 PM | | | | | PDT | | + + + + + | Temperature | 36.7 C (98 F) | 12/17/2017 3:00 PM | | | | | PDT | | + + + + + | Respiratory Rate | 16 | 12/17/2017 3:00 PM | | | | | PDT | | + + + + + | Oxygen Saturation | 98% | 12/17/2017 3:00 PM | | | | | PDT | | + + + + + | Inhaled Oxygen | - | - | | | Concentration | | | | + + + + + | Weight | 73.3 kg (161 lb 8 | 12/17/2017 3:00 PM | | | | oz) | PDT | | + + + + + | Height | 167.6 cm (5' 6") | 12/17/2017 3:00 PM | | | | | PDT | | + + + + + | Body Mass Index | 26.07 | 12/17/2017 3:00 PM | | | | | PDT | | + + + + + documented in this encounter Progress Notes Shannan Torrez MD - 12/17/2017 3:00 PM PDTFormatting of this note might be different fro m the original. HEMATOLOGY ONCOLOGY CLINIC NOTE Author: SHANNAN TORREZ MD Attending: LUIS ALBRETO KASPER MD Reason for Consult: Metastatic colon cancer vs. Neuroendocrine tumor Requesting Provider: Dr. Joseph Ndiaye MD Outpatient Industrial Automation Engineer/Oncologist: Dr. Joseph Ndiaye MD HPI: Mr. James Lake is a 62 y.o. 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 He seems to now have been developing disease progression on FOLFIRI-based therapies (including both bevacizumab and panitumumab). There i s also a liver biopsy in 2014 that suggests neuroendocrine carcinoma, unclear grade. Oncology Hx: -RUQ pain, decreased appetite, diarrhea, weight loss -06/25/12: CT showed multiple liver metastases -08/09/12: PET showed numerous bilateral liver metastases (largest 6.8X8.2cm with SUV 12.1, 5 .4X5.3cm with SUV 9.7, 6.0X6.5cm with SUV 9.3) -08/30/12: Liver biopsy showed metastatic adenocarcinoma: CK7 weakly cele, S-100 neg, CK20 ne g, CEA weakly cele -CEA 4.39, chromogranin 177, colonoscopy did not reveal primary leasion -08/15/12 to 04/03/13: received FOLFOX + bevacizumab 12 cycles, had resolution of her clinica l symptoms and partial response (12/25/12 CT largest 4.0 x 2.5 cm, 4.6 x 4.1 cm, 3.0 x 3.3 c m) -holiday from chemotherapy until 12/12/13, PET showed progressive disease while off chemoth erapy -restarted FOLFOX cycle 13-18, bevacizumab interrupted due to proteinruia -03/20/14: repeat liver biopsy showed possible neuroendocrine carcinoma, due to synaptophysi n+, neuron specific enolase+, CK7 weakly cele, CEA weakly cele, CDX2 negative -[facility] [employer]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, otherwise KRAS/NRAS/BRAF wild type, MSI-stab le -04/18/14 to 06/26/14: resumed FOLFOX+bevacizumab, cycle 19 to 26, developed peripheral neuro pahty -08/21/14 PET showed response, due to neuropathy switched to FOLFIRI -09/16/14- 11/15/14: started FOLFIRI + bevacizumab 6 cycles (had dose interruption due to non -cardiac chest pain) -12/24/14: PET showed uptake in left ilium (later on unlikely to be metastasis) and stable liver lesions now (4.7X2.4cm with SUV of 4.7, 2.3X2.7cm with SUV 4.3, and 2.9X3.0cm with SUV 5) -12/07/14 to 03/17/15: FOLFIRI+panitumumab 6 cycles(switched to PET showing stable disease an d questionable left ileum lesion), PET showed additional response -07/28/15: completed 15 cycles of FOLFIRI+panitumumab, then again went to holiday from chemo therapy -10/13/15: PET showed single focus in right liver -02/09/16 to 04/26/16 with FOLFIRI+bevacizumab 6 cycles, 05/10/16 PET showed stable disease -05/24/16 to 10/11/16: FOLFIRI+bevacizumab unclear # of cycles, 10/11/16 PET showed additional r esponse, continued until 02/14/17 then had break from chemotherapy -04/25/17: PET showed disease progression -3/28/18: switched to FOLFIRI+panitumumab -08/16/17: PET showed disease progression with 4.4cmX6.0cm with SUV 6.0, 3.6cm with SUV 7.28 , and other lesions as well -most recently treated with FOLFIRI 3 weeks ago, bevacizumab now held recently Interval Events -Today he reports good energy, planning to go elk hunting and also doing fishing, active li [employer] -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 Past Medical History: Diagnosis Date Arthritis Cancer (HCC) Chronic pain CKD (chronic kidney disease) Cr. 1.4 Coronary artery disease ED (erectile dysfunction) 12/19/2012 On viagra, Elevated cholesterol 12/19/2012 On a statin Headache(784.0) Proteinuria Past Surgical History Procedure Laterality Date Vasectomy Nasal septum repair Bypass, coronary artery 2006 Allergies Allergen Reactions Ethrane [Enflurane] Unknown Pt unsure about rxn Penicillin G Rash Current Medications aspirin EC 81 mg Oral tablet,delayed release (DR/EC), Take 81 mg by mouth once daily. Gallium Nitrate 25 mg/mL Intravenous Solution, Inject into the vein (IV). Patient reports gallium maltolate ("special mix") from family member. loperamide 2 mg Oral capsule, Take 2 mg by mouth four times daily as needed. LORazepam 1 mg Oral tablet, Take 1 mg by mouth every four hours as needed. omeprazole 20 mg Oral capsule,delayed release(DR/EC), Take 20 mg by mouth once daily. sildenafil 10 mg Oral tablet, Take by mouth. simvastatin 80 mg Oral tablet, Take 80 mg by mouth once daily in the evening. Social History Social History Marital status: Single Spouse name: N/A Number of children: N/A Years of education: N/A Occupational History Not on file. Social History Main Topics Smoking status: Former Smoker Packs/day: 1.00 Years: 20.00 Types: Cigarettes Quit date: 12/18/1994 Smokeless tobacco: Former User Comment: reports quit a while ago, but smoked for "many years" Alcohol use No Comment: quit 6 months ago, used to drink 6-12 beers/day Drug use: Yes Comment: marijuanna for nausea with chemo Sexual activity: Yes Other Topics Concern Not on file Social History Narrative No narrative on file Family History Problem Relation Diabetes Mother Heart Disease Maternal Grandmother Heart Disease Paternal Grandfather GI bleeding Paternal Grandmother Cancer Maternal Grandfather brain Colon Cancer Neg Hx Physical Exam: Last Vitals: BP 140/90 | Pulse 69 | Temp (Src) 36.7 C (98 F) (Oral) | RR 16 | Ht 1.676 m (5' 6") | Wt 73.3 kg (161 lb 8 oz) | SpO2 98% | BMI 26.07 kg/(m^2) General: Alert, oriented, and does not appear to be in any acute distress. Well developed, well nourished. HEENT: PERRL with no scleral icterus or conjunctival injection. No oral lesions. Lymph: No cervical, supraclavicular lymphadenopathy appreciated bilaterally. Cardiac: Regular rate and rhythm, no murmurs, rubs, or gallops. L chest port noted. Pulm: Clear to ausculation bilaterally, no wheezes, rales, or rhonchi. GI: Soft, nondistended abdomen with normoactive bowel sounds and no tenderness to palpation , mild discomfort. No rebound, guarding or rigidity Extremities: Warm and well perfused, no pitting edema in the lower extremities bilaterally. Skin: No rashes, no bruising/petechiae Neuro: Cranial nerves grossly intact bilaterally. No focal deficits, normal gait. Psych: Pleasant and appropriate affect ECO= Fully active, able to carry on all pre-disease performance without restriction Data: Labs: reviewed, recently CEA 2.7 Pathology: 11/25/12: Liver mass, core biopsy ([id number], 07/09/2012, [facility], [place], [place]): - Adenocarcinoma, favor metastatic (see comment) Comment: We appreciate the opportunity to review this case and essentially agree with the referring pathologist's diagnostic considerations. Sections demonstrate aggregates of neoplastic glands within hepatic parenchyma. The tumor cells posess abundant fine basophilic cytoplasm, prominent nucleoli, and mild pleomorphism. Mitoses are present. The background hepatic parenchyma is non-cirrhotic, though there is a desmoplastic response to the tumor. Immunohistochemical stains performed at the outside institution show the tumor cells to be weakly positive for cytokeratin 7 and negative for S-100, Melan-A, HMB45, cytokeratin 20, and trypsin. CEA is weakly positive. CD56 is equivocal and weak. The reticulin stain accentuates the nested and acinar-like nature of the tumor cells. Per accompanying consultative report ([employer], [id number]), the tumor cells are reportedly positive for synaptophysin and negative for CDX-2 and NKX3.1 (slides not available for review and reporteded to be technically sub-optimal and limited). Of note, [facility] reported exhaustion of the block, precluding additional staining. The combined morphologic and immunohistochemical findings are non-diagnostic, but are suggestive of a metastatic carcinoma. The differential diagnosis includes neuroendocrine tumor, acinar cell carcinoma, and other morphologically similar neoplasms. The routine stains are not characteristic for hepatocellular carcinoma. Given the incomplete immunophenotypic characterization and lack of tissue available for further analysis, repeat tissue sampling is advised as clinically indicated. Imaging: repeat CT scan today Assessment and Recommendations: Mr. James Lake is a 62 y.o. 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 He seems to now have been developing disease progression on FOLFIRI-based therapies (including both bevacizumab and panitumumab). There i s also a liver biopsy in 2015 that suggests neuroendocrine carcinoma, unclear grade. His kaylah ropathy likely will limit additional oxaliplatin-based therapies. Regorafenib, trifluridine/tipiracil, and liver-directed therapies all represent other possi ble palliative options for treatment-refractory metastatic colorectal cancer with liver only metastases. However, we would like to confirm initial pathologic diagnosis. 1. Recommend repeat diagnostic CT with contrast today. Defer to primary oncologist loin g PET scan on 12/19/17 locally. 2. Will present case with [facility] tumor board to review available images as well as liver biop sies from 2012 and 2014. Will likely recommend repeat liver biopsy of progressing lesion to confirm colorectal adenocarcinoma vs. Neuroendocrine tumor. 3. Can also consider 68-Gallium PET scan if there is pathologic confirmation or suspicion f or neuroendocrine tumor. The patient's case has been staffed with my attending physician, Dr. Kasper, who agrees w ith my assessment and recommendations or otherwise as noted in their addendum. SHANNAN TORREZ MD Hematology/Oncology Fellow PGY6 Pager [phone] Outpatient Consultation Date: 12/19/2012 Patient Name: James Lake Age: 57 y.o. CC: Metastatic liver lesions History of Present Illness Mr. Lake initially presented in June with vague symptoms that resulted in an imaging study / identifying multiple liver lesions. Surgical biopsies demonstrate metastatic adenocarcin jonas with presumed colon primary. PET imaging re-demonstrates multiple liver lesions and ruby picious area in ascending colon. He has completed several cycles (approximately 6) of FOLFO X+Avastin with an significant PET response. He presents today in evaluation for potential l iver directed therapies given his liver dominant tumor burden. Previous medical records obtained and reviewed: yes. Previous records indicate as above. MEDICATIONS: Current Outpatient Prescriptions Medication Sig aspirin EC 81 mg Oral tablet,delayed release (DR/EC) Take 81 mg by mouth once daily. Gallium Nitrate 25 mg/mL Intravenous Solution Inject into the vein (IV). Patient repor ts gallium maltolate ("special mix") from family member. loperamide 2 mg Oral capsule Take 2 mg by mouth four times daily as needed. LORazepam 1 mg Oral tablet Take 1 mg by mouth every four hours as needed. omeprazole 20 mg Oral capsule,delayed release(DR/EC) Take 20 mg by mouth once daily. sildenafil 10 mg Oral tablet Take by mouth. simvastatin 80 mg Oral tablet Take 80 mg by mouth once daily in the evening. No current facility-administered medications for this visit. ALLERGIES: Allergies Allergen Reactions Ethrane [Enflurane] Unknown Pt unsure about rxn Penicillin G Rash Review of Systems: (Complete = >10 systems; extended = 2-9; brief = 1) Nl Comments (positives or pertinent negatives) Constitutional 0 +fatigue, wt changes Eyes 0 Glasses, otherwise negative Ears/Nose/Mouth/Throat 0 Sinus issues with some nose bleeds, hearing changes Cardiac 0 Prior CABG, no recent chest pain Vascular 0 Atherosclerosis, otherwise negative Respiratory 0 denies Gastrointestinal 0 Some nausea with meals, bowel changes related to chemo, no blood in stoo l. Genitourinary 0 denies Musculoskeletal 0 Prior broken bones, back pain, arthritis Integumentary 0 denies Neurologic 0 Problems with memory, no seizure/black out reported Psychiatric 0 denies Endocrinologic 0 denies Hematologic 0 Bruise easy, otherwise negative Immunologic/allergies 0 Denies issues. Past Medical and Surgical History: Past Medical History: Diagnosis Date Arthritis Cancer (HCC) Chronic pain Coronary artery disease ED (erectile dysfunction) 12/19/2012 On viagra, Elevated cholesterol 12/19/2012 On a statin Headache(784.0) Past Surgical History Procedure Laterality Date Vasectomy Nasal septum repair Family History: Family History Problem Relation Diabetes Mother Heart Disease Maternal Grandmother Heart Disease Paternal Grandfather GI bleeding Paternal Grandmother Cancer Maternal Grandfather brain James Lake has no family history of liver disease or liver cancer. 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 He is with one child. His social support network (help at home during rec overy periods) would include his family and friends. He reports a smoking history of "many years" of smoking, but quit "a while ago". He reports a drinking history of 6-12 beers/day, but quit approximately 6 months ago. He denies illicit drug use (marijuanna for nausea/chemo therapy). He denies any history of tattoos or other risk factors for hepatitis. MULTI-SYSTEM EXAM: (> 8 = moderate to high; 2-7 = low; 1 = minimal) Elaborate Abnormal Find ings Constitutional: BP 140/90 | Pulse 69 | Temp (Src) 36.7 C (98 F) (Oral) | RR 16 | Ht 1.676 m (5' 6") | W t 73.3 kg (161 lb 8 oz) | SpO2 98% | BMI 26.07 kg/(m^2) Appearance: well nourished, no apparent distress Eyes: EOMI, PERRLA, no scleral icterus Neck: Normal JVP, trachea midline, no thyroid masses palpated Respiratory: symmetric chest expansion with respiratory effort, clear to auscultation Cardiovascular: regular rate and rhythm, no murmurs identified Abdominal: normal bowel sounds, no hernia identified, moderate hepatosplenomegaly, moderate right upper quadrant tenderness. Palpable liver below costochondral margin. Lymphatic: No cervical, supraclavicular, or inguinal adenopathy Musculoskeletal: Limited exam demonstrates symmetric gait, muscle strength and tone. Skin: No rashes, ulcers, or suspicious skin lesions identified. No cyanosis or clubbing. Neuro: Limited evaluation demonstrates a non focal neuro examination. Normal facial sensati on, no asterixis. Vascular: 2+ femoral, dorsalis pedis, and posterior tibial arteries bilaterally. Psych: alert, oriented to person, place, and time Data Review: (Laboratory/Radiology/Additional Records Reviewed) Labs: (11/12/2012) Cr-1.26 T-bili-0.4 plt-325 Albumin-3.8 Clinically apparent Ascites: No Encephalopathy: No Independent Imaging Review: CT demonstrates: 1. Possibly classic hepatic arterial anatomy (not great arterial bolus). 2. Patent portal vein 3. Multiple, large, bilobar liver lesions--some areas appear necrotic, others potentially viable disease. Most recent PET demonstrates minimal avidity relative to pre-treatment imag ing indicating a good response. Abdomen: There has been significant improvement in the innumerable hypo enhancing partially cystic hepatic metastases with index lesions as follows: Segment 5/8: 4.0 x 2.5 cm (image 130), previously, 5.4 x 4.1 cm. Segment 6: 4.6 x 4.1 cm (image 129), previously, 6.3 x 5.8 cm. Segment 2/3: 3.0 x 3.3 cm (image 119), previously, 4.5 x 4.4 cm. Impression: Innumerable hepatic lesions have decreased in size. No new metastases identif ied. Assessment/Plan: (Possible Diagnosis/Treatment Options/Additional Testing/Therapeutic Inter vention) 1. Metastatic adenocarcinoma to the liver, with liver dominant tumor burden. Most likely CRC primary. 2. Responding well to current systemic therapy. 3. Solid candidate for liver directed therapy - but would recommend waiting until evidence of growth in spite of optimum systemic therapy. If limited response to 1st/2nd line system ic options, then would consider Y90 radioembolization (growing body of literature supporting use - no randomized controlled trials yet -expected fall 2013). Information and brochures provided to describe procedure/risks/benefits. Options regarding focal liver therapy (routine chemoembolization, drug eluting beads and Y- 90 selective internal radiation therapy) were discussed at the initial consultation. The ri sks and benefits of these procedures were discussed (focusing on the appropriate therapy for the patient). Giancarlozaida Robinson Jaya currently wishes to proceed with the plan outlined above. I spent 60 minutes [id number] with the patient and his spouse. I spent more than 50% of this visit in counseling the patient in regards to the imaging findings, treatment options, as well as the risks and benefits of the procedures described above. Luis Alberto Wong Md - 12/17 3:00 PM PDT Attending Statement: I personally saw Giancarlozaida Sierraop and have repeated the pertinent portions of the his tory and physical exam. I agree with the findings documented above and have edited the note. The patient is seen in consultation at the request of Dr. Bermudez for 2nd opinion. Outsid e records were reviewed and are summarized above. Multiple PET/CTs and baseline CT CAP were personally reviewed, agree with report. Agree with nir's assessment and plan above. Plan: This is an unusual case of met disease since 2012, recent progression. A repeat biopsy of the liver in 2014 seem to suggest possibility of neuroendocrine tumor, we would like to have that reviewed at [facility]. He has been followed with PET CT scans over the last several years, I would recommend a diagnostic CT with contrast of the chest abdomen and pelvis in order to evaluate for any occult GI tumor as no lesion in his colon has been identified. We would also like to get a repeat biopsy of a growing lesions to rule in or rule out neuro endocrine carcinoma as the primary histology. If NE tumor, would recommend DOTATATE PET/CT scan for determination of therapeutic options such at PRRT. Orders Placed This Encounter CT CHEST, ABDOMEN AND PELVIS W IV CONTRAST CT CHEST, ABDOMEN AND PELVIS W IV CONTRAST F/U: Pending review of imaging, review of pathology report and slides from 2015 and possible ret urn for biopsy. documented in this encou nter Plan of Treatment + +---------+--------+ + + | Name | Type | Priori | Associated Diagnoses | Order Schedule | | | | ty | | | + +---------+--------+ + + | CT CHEST, ABDOMEN | Imaging | Routin | Liver metastases | Expected: | | AND PELVIS W IV | | e | (HCC) | 12/17/2017, Expires: | | CONTRAST | | | | 01/17/2019 | + +---------+--------+ + + documented as of this encounter Results CT CHEST, ABDOMEN AND PELVIS W IV CONTRAST (12/17/2017 5:15 PM PDT) + + | Specimen | + + | | + + + + + | Narrative | Performed At | + + + | EXAM: CT of the chest, abdomen and pelvis WITH intravenous contrast. | [facility] | | HISTORY: restaging met colon cancer, outside PETs for comparison | RADIOLOGY VOICE | | COMPARISON: 04/25/2017 PET/CT TECHNIQUE: CT of the chest, | RECOGNITION 2 | | abdomen and pelvis WITH intravenous contrast. Coronal and sagittal | | | reformats were generated and reviewed. FINDINGS: CHEST: | | | Coronary artery calcifications. Postsurgical changes from CABG. Heart | | | and great vessels otherwise. No axillary, supraclavicular, or hilar | | | adenopathy. Slight interval increase in prominence of anterior | | | mediastinal lymph node measuring 5 mm, which has fluctuated over | | | multiple priors, likely of little clinical significance. Calcified | | | granuloma left upper lobe. Linear atelectasis right lower lobe. | | | Stable 4 mm nodule right middle lobe (4/134) stable remotely to 2013. | | | No new lung nodules. LIVER: Multifocal metastatic disease, index | | | lesions as below: - Segment 2/3 superiorly, 6.8 x 5.4 cm (1/114) - | | | Segment 2/3 inferiorly, 7.3 x 5.5 cm (130), previously approximately | | | 4.9 x 3.6 cm on noncontrast exam. -Segment 5/6, 4.6 x 4.3 cm | | | (133), previously approximately 2.3 x 1.9 cm on noncontrast exam. | | | Direct comparison with outside PET/CT is difficult given lack of | | | intravenous contrast on outside studies. BILIARY: Gallbladder is | | | unremarkable. No intra or extrahepatic ductal dilatation. PANCREAS: | | | Unremarkable. SPLEEN: Unremarkable. ADRENALS: Unremarkable. | | | KIDNEYS/URETERS: Unremarkable. PELVIC ORGANS/BLADDER: Unremarkable. | | | GI TRACT: Unremarkable. PERITONEUM: No free air or fluid. | | | LYMPH NODES: No lymphadenopathy. VESSELS: Unremarkable. 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 No new | | | osseous metastases. IMPRESSION: Allowing for differences in | | | technique, multifocal hepatic metastasis have increased compared to | | | outside PET/CT from 04/25/2017. I have personally reviewed the | | | images and, if necessary, edited the report. I agree with the report | | | as now presented. Final signature: Lucero Correa MD | | | 12/18/2017 10:51 AM Preliminary: Lucero Correa MD | | | Dictation initiated: Lucero Correa MD 12/18/2017 9:10 AM | | + + + + + | Procedure Note | + + | Service Account, Radiant Res In Interface - 12/18/2017 10:52 AM PDT EXAM: CT of the | | chest, abdomen and pelvis WITH intravenous contrast. HISTORY: restaging met colon | | cancer, outside PETs for comparison COMPARISON: 04/25/2017 PET/CT TECHNIQUE: CT of the | | chest, abdomen and pelvis WITH intravenous contrast. Coronal and sagittal reformats were | | generated and reviewed. FINDINGS: CHEST: Coronary artery calcifications. Postsurgical | | changes from CABG. Heart and great vessels otherwise. No axillary, supraclavicular, or | | hilar adenopathy. Slight interval increase in prominence of anterior mediastinal lymph | | node measuring 5 mm, which has fluctuated over multiple priors, likely of little | | clinical significance. Calcified granuloma left upper lobe. Linear atelectasis right | | lower lobe. Stable 4 mm nodule right middle lobe (/134) stable remotely to 2013. No new | | lung nodules. LIVER: Multifocal metastatic disease, index lesions as below:- Segment | | 2/3 superiorly, 6.8 x 5.4 cm (114)- Segment 2/3 inferiorly, 7.3 x 5.5 cm (130), | | previously approximately 4.9 x 3.6 cm on noncontrast exam.-Segment 5/6, 4.6 x 4.3 cm | | (133), previously approximately 2.3 x 1.9 cm on noncontrast exam.Direct comparison | | with outside PET/CT is difficult given lack of intravenous contrast on outside | | studies.BILIARY: Gallbladder is unremarkable. No intra or extrahepatic ductal | | dilatation.PANCREAS: Unremarkable. SPLEEN: Unremarkable.ADRENALS: | | Unremarkable.KIDNEYS/URETERS: Unremarkable.PELVIC ORGANS/BLADDER: Unremarkable. GI | | TRACT: Unremarkable.PERITONEUM: No free air or fluid. LYMPH NODES: No | | lymphadenopathy.VESSELS: Unremarkable. BONES AND SOFT TISSUES: Stable likely chondroid | | lesion left iliac bone. No new osseous metastases. IMPRESSION: Allowing for differences | | in technique, multifocal hepatic metastasis have increased compared to outside PET/CT | | from 04/25/2017. I have personally reviewed the images and, if necessary, edited the | | report. I agree with the report as now presented. Final signature: Lucero Correa MD | | 12/18/2017 10:51 AM Preliminary: Lucero Correa MD Dictation initiated: Lucero Correa MD 12/18/2017 9:10 AM | |PELVIC ORGANS/BLADDER: Unremarkable. | | | |GI TRACT: Unremarkable. | |PERITONEUM: No free air or fluid. | | | |LYMPH NODES: No lymphadenopathy. | |VESSELS: Unremarkable. 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 No new osseous meta stases. | | | |IMPRESSION: | | | |Allowing for differences in technique, multifocal hepatic metastasis have increased compare d to outside PET/CT from 04/25/2017. | | | |I have personally reviewed the images and, if necessary, edited the report. I agree with th e report as now presented. | | | |Final signature: Lucero Correa MD 12/18/2017 10:51 AM | |Preliminary: Lucero Correa MD | |Dictation initiated: Lucero Correa MD 12/18/2017 9:10 AM | + + + +---------+ + + [...] | + + | Malignant neoplasm of ascending colon (HCC) Malignant neoplasm of ascending colon | + + documented in this encounter
--- OUTSIDE RECORDS SUMMARY | ~2018-12-04 | XMS | Encounter Summary ---
Demographics + + + | Address | [address] [place] [address] St | | | [place] [address] | + + + | Home Phone [...] Author + + + | Author | [facility] | + + + | Organization | [facility] | + + + | Address | Unknown | + + + | Phone | Unavailable | + + + Support + + +---------+ + | Name | Relationship | Address | Phone | + + +---------+ + | Keri Lake | ECON | Unknown | Unavailable | + + +---------+ + Care Team Providers + +------+ + | Care Bundle Helper Name | Role | Phone | + +------+ + | Adama Patrick MD | PCP | | + +------+ + Reason for Referral Diagnostic Testing (Routine) +--------+--------+ + + + [...] | | | | | Malignant | [place], [place] | [address] [facility] | | | | | neoplasm of | [address] | [facility] | | | | | colon, | Phone: | [place], [place] | | | | | unspecified | [phone] | [address] | | | | | site | Fax: | Phone: | | | | | Procedures | [phone] | [phone] | | | | | CT CHEST, | | Fax: | | | | | ABDOMEN & | | [phone] | | | | | PELVIS WWO | | | | | | | IV CONTRAST | | | | | | | WA CAT SCAN | | | | | | | OF CHEST | | | | | | | COMBO WA CT | | | | | | | ABD&PELV 1+ | | | | | | | | | | | | | | SECTION/REGN | | | | | | | S | | | +--------+--------+ + + + + Reason for Visit + + + | Reason | Comments | + + + | Radiology Order | | + + + Encounter Details +--------+ + + + + | Date | Type | Department | Care Team | Description | +--------+ + + + + | 11/20/ | Production Expert | Surgical Oncology | Emely, | Secondary malignant | | 2012 | | at [facility] [address] | MD Sukhdeep [address] | neoplasm of liver | | | | Bao Tavareztyson Mail Code: | Bao Fernández [place], | (HCC) (Primary Dx); | | | | [facility] | [place] [address] | Malignant neoplasm | | | | and Healing, | [phone] | of colon, | | | | [address] | | unspecified site | | | | [place], [place] | | | | | | [address] | | | | | | [phone] | | | +--------+ + + + + Social History + +-------+ +--------+------+ | Tobacco Use | Types | Packs/Day | Years | Date | | | | | Used | | + +-------+ +--------+------+ | Never Assessed | | | | | + +-------+ +--------+------+ + + + | Sex Assigned at [...] | Secondary malignant neoplasm of liver (HCC) - Primary Secondary malignant neoplasm of | | liver | + + | Malignant neoplasm of colon, unspecified site | + + documented in this encounter"
--- OUTSIDE RECORDS SUMMARY | ~2018-12-04 | XMS | Encounter Summary ---
Demographics + + + | Address | [address] [place] [address] St | | | [place] [address] | + + + | Home Phone | | + + + | Preferred Language | Unknown | + + + | Marital Status | Single | + + + | Congregation Affiliation | Unknown | + + + | Race | White | + + + | Ethnic Group | Not or | + + + Author + + + | Author | [facility] | + + + | Organization | [facility] | + + + | Address | Unknown | + + + | Phone | Unavailable | + + + Support + + +---------+ + | Name | Relationship | Address | Phone | + + +---------+ + | Keri Lake | ECON | Unknown | Unavailable | + + +---------+ + Care Team Providers + +------+ + | Care Fluid Dynamicist Name | Role | Phone | + +------+ + | Adama Patrick MD | PCP | | + +------+ + Encounter Details +--------+ + + + + | Date | Type | Department | Care Team | Description | +--------+ + + + + | 11/01/ | Document-Sc | UNKNOWN DEPARTMENT | Unknown . | | | 2012 | anned | [address] [facility] | | | | | | [address] | | | | | | [place], [place] | | | | | | [address] | | | +--------+ + + + [...] | + +--------+ + + + | RADIOLOGY | | 11/01/2012 | | Results for this | | | | 12:00 AM | | procedure are in the | | | | PDT | | results section. | + +--------+ + + + documented in this encounter Results RADIOLOGY (11/01/2012 12:00 AM PDT) + + + | Narrative | Performed At | + + + | | | | | | + + + + + | Procedure Note | + + | Agustin Prasad - 01/23/2013 1:07 PM PST | + + documented in this encounter Visit Diagnoses Not on filedocumented in this encounter"
--- OUTSIDE RECORDS SUMMARY | ~2018-12-04 | XMS | Encounter Summary ---
Demographics + + + | Address | [address] [place] [address] St | | | [place] [address] | + + + | Home Phone [...] Author + + + | Author | [facility] | + + + | Organization | [facility] | + + + | Address | Unknown | + + + | Phone | Unavailable | + + + Support + + +---------+ + | Name | Relationship | Address | Phone | + + +---------+ + | Keri Lake | ECON | Unknown | Unavailable | + + +---------+ + Care Team Providers + +------+ + | Care Bowling Ball Assembler Name | Role | Phone | + +------+ + | Lusi Bermudez MD | PCP | | + [...] | | | | | metastases | [address] | | | | | | (HCC) | [address] | | | | | | Malignant | [address] | | | | | | neoplasm of | [place], [place] | | | | | | ascending | [address] | | | | | | colon (HCC) | Phone: | | | | | | Procedures | [phone] | | | | | | CT CHEST, | Fax: | | | | | | ABDOMEN AND | [phone] | | | | | | PELVIS [...] | | | | | (HCC) | [address] | | | | | | Malignant | [address] | | | | | | neoplasm of | [place], [place] | | | | | | ascending | [address] | | | | | | colon (HCC) | Phone: | | | | | | Procedures | [phone] | | | | | | CT CHEST, | Fax: | | | | | | ABDOMEN AND | [phone] | | | | | | PELVIS [...] | | | | | (HCC) | [facility] | | | | | | Malignant | [address] | | | | | | neoplasm of | [place], [place] | | | | | | ascending | [address] | | | | | | colon (HCC) | Phone: | | | | | | Procedures | [phone] | | | | | | CT CHEST, | Fax: | | | | | | ABDOMEN AND | [phone] | | | | | | PELVIS W IV | | | | | | | CONTRAST | | | + +--------+ + + + + Encounter Details +--------+ + + + + | Date | Type | Department | Care Team | Description | +--------+ + + + + | 12/17/ | Hospital | Diagnostic Imaging | Sarah Kasper, | | | 2017 | Encounter | Services at [facility] | [address] | | | | | [address] [facility] | [place] [address] | | | | | [facility] Mailcode: | [place] [address] | | | | | [address] [facility] | [phone] | | | | | [place], [place] | | | | | | [address] | | | | | | [phone] | | | +--------+ + + + [...] | + +--------+ + + + | CT CHEST, ABDOMEN | Routin | 12/17/2017 | Liver metastases | Results for this | | AND PELVIS W IV | e | 5:15 PM | (HCC) Malignant | procedure are in the | | CONTRAST | | PDT | neoplasm of | results section. | | | | | ascending colon | | | | | | (HCC) | | + +--------+ + + + | CREATININE, POC | Routin | 12/17/2017 | Liver metastases | Results for this | | | e | 4:43 PM | (HCC) | procedure are in the | | | | PDT | | results section. | + +--------+ + + + documented in this encounter Results CT CHEST, ABDOMEN AND [...] Stable 4 mm nodule right middle lobe (134) stable remotely to 2013. | | | No new lung nodules. LIVER: Multifocal metastatic disease, index | | | lesions as below: - Segment 2/3 superiorly, 6.8 x 5.4 cm (114) - | | | Segment 2/3 inferiorly, 7.3 x 5.5 cm (130), previously approximately | | | 4.9 x 3.6 cm on noncontrast exam. -Segment 5/6, 4.6 x 4.3 cm | | | (), previously approximately 2.3 x 1.9 cm on [...] Stable 4 mm nodule right middle lobe (134) stable remotely to 2013. No new | | lung nodules. LIVER: Multifocal metastatic disease, index lesions as below:- Segment | | 2/3 superiorly, 6.8 x 5.4 cm (114)- Segment 2/3 inferiorly, 7.3 x 5.5 cm (130), | | previously approximately 4.9 x 3.6 cm on noncontrast exam.-Segment 5/6, 4.6 x 4.3 cm | | (), previously approximately 2.3 x 1.9 cm on [...] Preliminary: Lucero Correa MD Dictation initiated: Lucero Hinds | | MD Sunny 12/18/2017 9:10 AM | |PELVIC ORGANS/BLADDER: Unremarkable. [...] necessary, edited the report. I agree with renard mehta report as now presented. | | | [...] | | | + +---------+ + + CREATININE, POC (12/17/2017 4:43 PM PDT) + +---------+ + + + | Component | Value | Ref Range | Performed | Pathologist | | | | | At | Signature | + +---------+ + + + | CREATININE, | 1.4 (H) | 0.7 - 1.3 mg/dL | [facility] - | | | POC | | | [facility] | | | | | | [facility] | | | | | | OF CARE | | | | | | TESTS | | + +---------+ + + + + + | Specimen | + + | Blood | + + + + + + + | Performing | Address | City/State/Zipcode | Phone Number | | Organization | | | | + + + + + | [facility] | [address] | [place], [place] | | | [facility] | [facility] | [address] | | | TESTS | | | | + + + + + documented in this encounter Visit Diagnoses + + | Diagnosis | + + | Liver metastases (HCC) Secondary malignant neoplasm of liver | + + | Malignant neoplasm of ascending colon (HCC) Malignant neoplasm of ascending colon | + + documented in this encounter Administered Medications + +---------+ +--------+------+------+ | Medication Order | MAR | Action | Dose | Rate | Site | | | Action | Date | | | | + +---------+ +--------+------+------+ | iohexol (OMNIPAQUE) 350 mg | IV Push | 12/17/ | 100 mL | | | | iodine/mL injection 100 mL 100 | | 18 5:11 | | | | | mL, intravenous, ONCE, 1 dose, | | PM PDT | | | | | 12/17/17 at 1800 | | | | | | + +---------+ +--------+------+------+ +---+---+ | | | +---+---+ documented in this encounter
--- OUTSIDE RECORDS SUMMARY | ~2018-12-04 | XMS | Clinical Summary ---
Demographics + + + | Address | [address] | | | [place] [address] | + + + | Home Phone | | + + + | Preferred Language | Unknown | + + + | Marital Status | | + + + | Mu-Ism Affiliation | 1013 | + + + | Race | Unknown | + + + | Ethnic Group | Unknown | + + + Author + + + | Author | [facility] (Historical as of | | | 10-19-18) | + + + | Organization | [facility] (Historical as of | | | 10-19-18) | + + + | Address | Unknown | + + + | Phone | Unavailable | + + + Support + + + + + | Name | Relationship | Address | Phone | + + + + + | Domo Noe | ECON | [address] | | | | | [place], [place] | | | | | [address] | | + + + + + Care Team Providers + +------+ + | Care English Language Learner Teacher Name | Role | Phone | + +------+ + | Adama Patrick MD | PP | | + +------+ + Allergies + + + + + + | Active Allergy | Reactions | Severity | Noted | Comments | | | | | Date | | + + + + + + | Penicillins | Rash | Medium | 12/25/19 | | | | | | 15 | | + + + + + + Current Medications Not on file Active Problems Not on file Social History + +-------+ +--------+------+ | Tobacco [...] on file | | + + + Last Filed Vital Signs + + + + | Vital Sign | Reading | Time Taken | + + + + | Blood Pressure | - | - | + + + + | Pulse | - | - | + + + + | Temperature | - | - | + + + + | Respiratory Rate | - | - | + + + + | Oxygen Saturation | - | - | + + + + | Inhaled Oxygen | - | - | | Concentration | | | + + + + | Weight | 68 kg (150 lb) | 12/24/2014 10:13 AM PDT | + + + + | Height | 167.6 cm (5' 6") | 12/24/2014 10:13 AM PDT | + + + + | Body Mass Index | 24.21 | 12/24/2014 10:13 AM PDT | + + + + Plan of Treatment Not on file Results Not on filefrom Last 3 Months Insurance + +--------+ +------+-------+---------+ | Payer | Benefi | Subscriber | Type | Phone | Address | | | t Plan | ID | | | | | | / | | | | | | | Group | | | | | + +--------+ +------+-------+---------+ | [employer] | [employer] | [id number] | | | | | | HEALTH | | | | | | | PLAN | | | | | + +--------+ +------+-------+---------+ + +--------+ +--------+ + + | Guarantor Name | Accoun | Relation to | Date | Phone | Billing Address | | | t Type | Patient | of | | | | | | | | | | + +--------+ +--------+ + + | DOMO NOE | Person | Self [birth year] | Home: | [id number] | | | al/Fam | | [phone] | [phone] [place] [address] | | | janette | | | [phone] | | + +--------+ +--------+ + +
--- OUTSIDE RECORDS SUMMARY | ~2018-12-04 | XMS | Encounter Summary ---
Demographics + + + | Address | [address] [place] [address] St | | | [place] [address] | + + + | Home Phone | | + + + | Preferred Language | Unknown | + + + | Marital Status | Single | + + + | Islam Affiliation | Unknown | + + + | Race | White | + + + | Ethnic Group | Not or | + + + Author + + + | Author | [facility] | + + + | Organization | [facility] | + + + | Address | Unknown | + + + | Phone | Unavailable | + + + Support + + +---------+ + | Name | Relationship | Address | Phone | + + +---------+ + | [place]eri [place] | ECON | Unknown | Unavailable | + + +---------+ + Care Team Providers + +------+ + | Care Power Mule Operator Name | Role | Phone | + [...] | +--------+ + + + + | 01/15/ | Telephone | Surgical Oncology | Emely | Tumor Board | | 2012 | | at [facility] [address] | MD Sukhdeep [address] | Recommendation | | | | Bao Fern[facility]dez Mail Code: | Bao Fernández [place], | | | | | [facility] | [place] [address] | | | | | and Leonor | [phone] | | | | | [facility] [address] | | | | | | [place], [place] | | | | | | [address] | | | | | | [phone] | | | +--------+ + + + [...]
--- OUTSIDE RECORDS SUMMARY | ~2018-12-04 | XMS | Encounter Summary ---
Demographics + + + | Address | [address] [place] [address] St | | | [place] [address] | + + + | Home Phone | | + + + | Preferred Language | Unknown | + + + | Marital Status | Single | + + + | Jain Affiliation | Unknown | + + + | Race | White | + + + | Ethnic Group | Not or | + + + Author + + + | Author | [facility] | + + + | Organization | [facility] | + + + | Address | Unknown | + + + | Phone | Unavailable | + + + Support + + +---------+ + | Name | Relationship | Address | Phone | + + +---------+ + | [place]eri [place] | ECON | Unknown | Unavailable | + + +---------+ + Care Team Providers + +------+ + | Care Spool Cleaner Hand Name | Role | Phone | [...] Tx Recommendation | | 2015 | | [place] [address] [address] | MD [place] [address] | Tracking | | | | [address] | Ave [place], [place] | | | | | Mailcode: [place] | [address] | | | | | [facility] and | [phone] | | | | | [place] [address] | | | | | | [place], [place] | | | | | | [address] | | | | | | [phone] | | | +--------+ + + + [...]
--- OUTSIDE RECORDS SUMMARY | ~2018-12-04 | XMS | Encounter Summary ---
Demographics + + + | Address | [address] [place] [address] St | | | [place] [address] | + + + | Home Phone | | + + + | Preferred Language | Unknown | + + + | Marital Status | Single | + + + | Sabianism Affiliation | Unknown | + + + | Race | White | + + + | Ethnic Group | Not or | + + + Author + + + | Author | [facility] | + + + | Organization | [facility] | + + + | Address | Unknown | + + + | Phone | Unavailable | + + + Support + + +---------+ + | Name | Relationship | Address | Phone | + + +---------+ + | [place] | ECON | Unknown | Unavailable | + + +---------+ + Care Team Providers + +------+ + | Care Systems Support Officer Name | Role | Phone | + +------+ + | Adama Patrick MD | PCP | | + +------+ + Encounter Details +--------+ + + + + | Date | Type | Department | Care Team | Description | +--------+ + + + + | 11/21/ | Boom Pump Operator | Surgical Oncology | Emely | Colon cancer | | 2012 | | at [facility] [address] | MD Sukhdeep [address] | metastasized to lung | | | | Bao Fernández Mail Code: | Bao Gaona, | ([facility]LY [facility]) (Primary Dx) | | | | [place] [facility] | [place] [address] | | | | | and Healing, | [phone] | | | | | [address] | | | | | | [place], [place] | | | | | | [address] | | | | | | [phone] | | | +--------+ + + + [...] | + +--------+ + + + | PATHOLOGY CONSULT - | Routin | 11/25/2012 | Colon cancer | Results for this | | REVIEW OUTSIDE | e | | metastasized to lung | procedure are in the | | SLIDES | | | ([facility]) | results section. | + +--------+ + + + documented in this encounter Results PATHOLOGY CONSULT - REVIEW OUTSIDE SLIDES (11/25/2012) + + + + + + | Component | Value | Ref Range | Performed | Pathologist | | | | | At | Signature | + + + + + + | PATHOLOGY | SOURCE OF SPECIMEN:A | | [facility] | | | CONSULT - | Liver mass, core | | DEPARTMENT | | | SLIDES | biopsy Materials | | OF | | | | Received:Referring | | PATHOLOGY | | | | Institution: [place] | | | | | | [facility], | | | | | | [place] | | | | | | [id number] Accession | | | | | | Number: [id number] | | | | | | Collection Date: | | | | | | 07/09/2012Sublabeled | | | | | | | | | | | | H&E IHC | | | | | | A to | | | | | | B | | | | | | | | | | | | 2 | | | | | | 18 Final | | | | | | Pathologic | | | | | | Diagnosis:Liver mass, | | | | | | core biopsy ([id number], | | | | | | 07/09/2012, [facility] | | | | | | Pathology,[place], | | | | | | [place]): - | | | | | | Adenocarcinoma, favor | | | | | | metastatic (see | | | | | | comment) | | | | | | Comment: We | | | | | | appreciate the | | | | | | opportunity to review | | | | | | this case and | | | | | | essentiallyagree with | | | | | | the referring | | | | | | pathologist's diagnostic | | | | | | | | | | | | considerations. Secti | | | | | | onsdemonstrate | | | | | | aggregates of neoplastic | | | | | | glands within hepatic | | | | | | parenchyma. Thetumor | | | | | | cells posess abundant | | | | | | fine basophilic | | | | | | cytoplasm, prominent | | | | | | nucleoli,and mild | | | | | | pleomorphism. Mitoses | | | | | | are present. The | | | | | | background | | | | | | hepaticparenchyma is | | | | | | non-cirrhotic, though | | | | | | there is a desmoplastic | | | | | | response to | | | | | | thetumor. Immunohisto | | | | | | chemical stains | | | | | | performed at the outside | | | | | | institutionshow the | | | | | | tumor cells to be weakly | | | | | | positive for | | | | | | cytokeratin 7 and | | | | | | negativefor S-100, | | | | | | Melan-A, HMB45, | | | | | | cytokeratin 20, and | | | | | | trypsin. CEA is | | | | | | weaklypositive. CD56 is | | | | | | equivocal and | | | | | | weak. The reticulin | | | | | | stain accentuates | | | | | | thenested and | | | | | | acinar-like nature of | | | | | | the tumor cells. | | | | | | Per accompanying | | | | | | consultative report | | | | | | (Phenopath | | | | | | Laboratories,[id number] | | | | | | 11-03), the tumor cells | | | | | | are reportedly positive | | | | | | for synaptophysinand | | | | | | negative for CDX-2 and | | | | | | NKX3.1 (slides not | | | | | | available for review | | | | | | andreporteded to be | | | | | | technically sub-optimal | | | | | | and limited). Of | | | | | | note, | | | | | | [facility]opathLaboratories | | | | | | reported exhaustion of | | | | | | the block, precluding | | | | | | additionalstaining. T | | | | | | he combined morphologic | | | | | | and immunohistochemical | | | | | | findings | | | | | | arenon-diagnostic, but | | | | | | are suggestive of a | | | | | | metastatic carcinoma. | | | | | | Thedifferential | | | | | | diagnosis includes | | | | | | neuroendocrine tumor, | | | | | | acinar cellcarcinoma, | | | | | | and other | | | | | | morphologically similar | | | | | | neoplasms. The routine | | | | | | stainsare not | | | | | | characteristic for | | | | | | hepatocellular | | | | | | carcinoma. Given the | | | | | | incompleteimmunophenotyp | | | | | | ic characterization and | | | | | | lack of tissue available | | | | | | for furtheranalysis, | | | | | | repeat tissue sampling | | | | | | is advised as clinically | | | | | | indicated. Case | | | | | | seen by:Thierno Guo, | | | | | | M.D., Ph.D./Surgical | | | | | | Pathology FellowDouglas | | | | | | Weeks, | | | | | | M.D./PathologistThe | | | | | | slides will be returned | | | | | | at a later | | | | | | dateT:11/27/2012/rdl | | | | | | Clinical | | | | | | History:The patient is a | | | | | | 57-year-old male with | | | | | | multiple hepatic | | | | | | masses. My | | | | | | electronic signature | | | | | | indicates that I have | | | | | | personally reviewed | | | | | | alldiagnostic slides, | | | | | | the gross and/or | | | | | | microscopic portion of | | | | | | thisreport and | | | | | | formulated the final | | | | | | diagnosis. | | | | | | Rendering | | | | | | Diagnostician: Nancy | | | | | | saida Montejo | | | | | | MangoPathologistЕкатеринаi | | | | | | kell Signed | | | | | | 11/28/2012 1:24PM | | | | + + + + + + + + | Specimen | + + | | + + + + + + + | Performing | Address | City/State/Zipcode | Phone Number | | Organization | | | | + + + + + | [facility] | [address] | [place] [address] | | | PATHOLOGY | [address] | | | + + + + + documented in this encounter Visit Diagnoses + + | Diagnosis | + + | Colon cancer metastasized to lung (HCC) - Primary Malignant neoplasm of colon, | | unspecified site | + + documented in this encounter"
--- OUTSIDE RECORDS SUMMARY | ~2018-12-04 | XMS | Encounter Summary ---
Demographics + + + | Address | [address] [place] [address] St | | | [place] [address] | + + + | Home Phone [...] Author + + + | Author | [facility] | + + + | Organization | [facility] | + + + | Address | Unknown | + + + | Phone | Unavailable | + + + Support + + +---------+ + | Name | Relationship | Address | Phone | + + +---------+ + | [place]eri [place] | ECON | Unknown | Unavailable | + + +---------+ + Care Team Providers + +------+ + | Care Technical Assistant Name | Role | Phone | + [...] | | | | | Malignant | [place], [place] | [address] [facility] | | | | | neoplasm of | [address] | [facility] | | | | | colon, | Phone: | [place], [place] | | | | | unspecified | [phone] | [address] | | | | | site | Fax: | Phone: | | | | | Procedures | [phone] | [phone] | | | | | CT CHEST, | | Fax: | | | | | ABDOMEN & | | [phone] | | | | | PELVIS WWO | | | | | | | IV CONTRAST | | | | | | | [place] CAT SCAN | | | | | | | OF CHEST | | | | | | | COMBO [place] CT | | | | | | [...] | 2012 | Encounter | Services at [facility] | | | | | | [address] | | | | | | Katja Hare Mailcode: | | | | | | [address] [facility] | | | | | | [place], [place] | | | | | | [address] | | | | | | [phone] | | | +--------+ + + + [...]
--- OUTSIDE RECORDS SUMMARY | ~2018-12-04 | XMS | Encounter Summary ---
Demographics + + + | Address | [address] [place] [address] St | | | [place] [address] | + + + | Home Phone [...] Team Providers + +------+ + | Care Operator Vacuum Name | Role | Phone | + [...] | | | | | metastases | [address] | | | | | | (HCC) | [address] | | | | | | Malignant | [address] | | | | | | neoplasm of | [place], [place] | | | | | | ascending | [address] | | | | | | colon (HCC) | Phone: | | | | | | Procedures | [phone] | | | | | | CT CHEST, | Fax: | | | | | | ABDOMEN AND | [phone] | | | | | | PELVIS [...] | | | | | (HCC) | [address] | | | | | | Malignant | [address] | | | | | | neoplasm of | [place], [place] | | | | | | ascending | [address] | | | | | | colon (HCC) | Phone: | | | | | | Procedures | [phone] | | | | | | CT CHEST, | Fax: | | | | | | ABDOMEN AND | [phone] | | | | | | PELVIS [...] | | | | | (HCC) | [address] | | | | | | Malignant | [address] | | | | | | neoplasm of | [place], [place] | | | | | | ascending | [address] | | | | | | colon (HCC) | Phone: | | | | | | Procedures | [phone] | | | | | | CT CHEST, | Fax: | | | | | | ABDOMEN AND | [phone] | | | | | | PELVIS [...] | 2017 | Encounter | Services at [facility] | [address] | | | | | [address] | [place] [address] | | | | | [facility] Mailcode: | [place] [address] | | | | | [address] [facility] | [phone] | | | | | [place], [place] | | | | | | [address] | | | | | | [phone] | | | +--------+ + + + [...] TITUS | [address] | [place], [place] | | | [facility] | [facility] | [address] | | | TESTS | | | [...]
--- OUTSIDE RECORDS SUMMARY | ~2018-12-04 | XMS | Encounter Summary ---
Demographics + + + | Address | [address] [place] [address] St | | | [place] [address] | + + + | Home Phone | | + + + | Preferred Language | Unknown | + + + | Marital Status | Single | + + + | Yarsani Affiliation | Unknown | + + + | Race | White | + + + | Ethnic Group | Not or | + + + Author + + + | Author | [facility] | + + + | Organization | [facility] | + + + | Address | Unknown | + + + | Phone | Unavailable | + + + Support + + +---------+ + | Name | Relationship | Address | Phone | + + +---------+ + | [place] | ECON | Unknown | Unavailable | + + +---------+ + Care Team Providers + +------+ + | Care Contracts Director Name | Role | Phone | + +------+ + | Luis Bermudez MD | PCP | | + +------+ + Encounter Details +--------+ + + + + | Date | Type | Department | Care Team | Description | +--------+ + + + + | 12/17/ | Document-Sc | Hematology/Medical | Sarah Kasper, | | | 2018 | anned | Oncology at [facility] | [address] | | | | | for Health & Healing | Road [facility] [address] | | | | | [address] | [place] [address] | | | | | Mailcode: [place] | [phone] | | | | | for Health and | | | | | | Healing, [address] | | | | | | [place], [place] | | | | | | [address] | | | | | | [phone] | | | +--------+ + + + [...] | + +--------+ + + + | OUTSIDE CHEMOTHERAPY | | 12/17/2017 | | | | FLOW SHEET | | 12:00 AM | | | | | | PDT | | | + +--------+ + + + | OUTSIDE RADIOLOGY - | | 12/17/2017 | | | | PET | | 12:00 AM | | | | | | PDT | | | + +--------+ + + + | LAB REPORTS | | 12/17/2017 | | Results for this | | | | 12:00 AM | | procedure are in the | | | | PDT | | results section. | + +--------+ + + + | PATHOLOGY | | 12/17/2017 | | Results for this | | | | 12:00 AM | | procedure are in the | | | | PDT | | results section. | + +--------+ + + + documented in this encounter Results LAB REPORTS (12/17/2017 12:00 AM PDT) + + + | Narrative | Performed At | + + + | | | + + + PATHOLOGY (12/17/2017 12:00 AM PDT) + + + | Narrative | Performed At | + + + | | | + + + OUTSIDE RADIOLOGY - PET (12/17/2017 12:00 AM PDT) + + + | Narrative | Performed At | + + + | | | + + + documented in this encounter Visit Diagnoses Not on filedocumented in this encounter
--- OUTSIDE RECORDS SUMMARY | ~2018-12-04 | XMS | Encounter Summary ---
Demographics + + + | Address | [address] [place] [address] St | | | [place] [address] | + + + | Home Phone | | + + + | Preferred Language | Unknown | + + + | Marital Status | Single | + + + | Advent Affiliation | Unknown | + + + [...] Team Providers + +------+ + | Care Csr Retail Name | Role | Phone | + +------+ + | Luis Bermudez MD | PCP | | + +------+ + Reason for Visit + + + | Reason | Comments | + + + | Scheduling | | + + + Encounter Details +--------+ + + + + | Date | Type | Department | Care Team | Description | +--------+ + + + + | 12/25/ | Telephone | Hematology/Medical | Sarah Kasper, | Scheduling | | 2017 | | Oncology at [facility] | [address] | | | | | for Health & Healing | Road [address] | | | | | [address] [facility] | [place] [address] | | | | | Mailcode: [place] | [phone] | | | | | for Health and | | | | | | [facility] [address] | | | | | | [place], [place] | | | | | | [address] | | | | | | [phone] | | | +--------+ + + + [...]
--- OUTSIDE RECORDS SUMMARY | ~2018-12-04 | XMS | Encounter Summary ---
Demographics + + + | Address | [address] [place] [address] St | | | [place] [address] | + + + | Home Phone | | + + + | Preferred Language | Unknown | + + + | Marital Status | Single | + + + | Sikhism Affiliation | Unknown | + + + | Race | White | + + + | Ethnic Group | Not or | + + + Author + + + | Author | [facility] | + + + | Organization | [facility] | + + + | Address | Unknown | + + + | Phone | Unavailable | + + + Support + + +---------+ + | Name | Relationship | Address | Phone | + + +---------+ + | [place] | ECON | Unknown | Unavailable | + + +---------+ + Care Team Providers + +------+ + | Care Finish Molder Name | Role | Phone | + +------+ + | Adama Patrick MD | PCP | | + +------+ + Encounter Details +--------+ + + + + | Date | Type | Department | Care Team | Description | +--------+ + + + + | 12/18/ | Results | Surgical Oncology | Emely, | | | 2012 | Only | at [facility] [address] | MD [address]uk[address] | | | | | [place] Mail Code: | Bao Fern[address] [place], | | | | | [facility] | [place] [address] | | | | | and Healing, | [phone] | | | | | [address] | | | | | | [place], [place] | | | | | | [address] | | | | | | [phone] | | | +--------+ + + + [...] | CT CHEST, ABDOMEN | Routin | 12/18/2012 | | Results for this | | AND PELVIS W IV | e | 1:08 PM | | procedure are in the | | CONTRAST | | PDT | | results section. | + +--------+ + + + documented in this encounter Results CT CHEST, ABDOMEN & PELVIS W IV CONTRAST (12/18/2012 1:08 PM PDT) + + + + + + | Component | Value | Ref Range | Performed | Pathologist | | | | | At | Signature | + + + + + + | CT CHEST, | Indication: Metastatic | | | | | ABDOMEN & | colorectal cancer to the | | | | | PELVIS W | liver. Comparison: | | | | | CONTRAST | 06/25/2012. 06/28/2012. | | | | | | Technique: Axial images | | | | | | were performed through | | | | | | the chest abdomen, and | | | | | | pelvisafter 150 cc | | | | | | Omnipaque IV. Findings: | | | | | | Chest: A side port | | | | | | terminates at the | | | | | | cavoatrial | | | | | | junction. The | | | | | | visualizedthyroid is | | | | | | within normal | | | | | | limits. No thoracic | | | | | | adenopathy. No | | | | | | pleural orpericardial | | | | | | effusions. The heart | | | | | | is normal in | | | | | | size. The lungs are | | | | | | clear. Abdomen: There | | | | | | has been significant | | | | | | improvement in the | | | | | | innumerablehypoenhancing | | | | | | partially cystic | | | | | | hepatic metastases with | | | | | | index lesions | | | | | | asfollows:Segment 5/8: | | | | | | 4.0 x 2.5 cm (image | | | | | | 130), previously, 5.4 x | | | | | | 4.1 cm.Segment 6: 4.6 x | | | | | | 4.1 cm (image 129), | | | | | | previously, 6.3 x 5.8 | | | | | | cm.Segment 2/3: 3.0 x | | | | | | 3.3 cm (image 119), | | | | | | previously, 4.5 x 4.4 | | | | | | cm. No new lesions are | | | | | | identified. The | | | | | | contracted gallbladder, | | | | | | pancreas, spleen, | | | | | | adrenal glands, and both | | | | | | kidneysare stable with | | | | | | cortical irregularity of | | | | | | the right upper pole | | | | | | consistent withscarring. | | | | | | Pelvis: The bowel loops | | | | | | are not dilated. The | | | | | | bladder, prostate, and | | | | | | seminalvesicles are | | | | | | within normal | | | | | | limits. No free | | | | | | fluid, free air, or | | | | | | adenopathy. No | | | | | | suspicious osseous | | | | | | abnormalities. | | | | | | Impression: Innumerab | | | | | | le hepatic lesions have | | | | | | decreased in size. No | | | | | | newmetastases | | | | | | identified. Attending | | | | | | Radiologists: JAEL | | | | | | AUDRA NUNEZuthor: JAEL | | | | | | MD ENRIQUE I have | | | | | | personally viewed this | | | | | | procedure/exam, reviewed | | | | | | this report, and | | | | | | madechanges to it where | | | | | | appropriate. | | | | | | Final/Electronically | | | | | | signed / JAEL NUNEZ | | | | | | 12/18/2012 14:21 PM | | | | + + + + + + + + | Specimen | + + | | + + + +---------+ + + | Performing | Address | City/State/Zipcode | Phone Number | | Organization | | | | + +---------+ + + | [facility] DEPARTMENT OF | | | | | RADIOLOGY | | | | + +---------+ + + documented in this encounter Visit Diagnoses Not on filedocumented in this encounter"
--- OUTSIDE RECORDS SUMMARY | ~2018-12-04 | XMS | Encounter Summary ---
Demographics + + + | Address | [address] [place] [address] St | | | [place] [address] | + + + | Home Phone | | + + + | Preferred Language | Unknown | + + + | Marital Status | Single | + + + | Adventism Affiliation | Unknown | + + + | Race | White | + + + | Ethnic Group | Not or | + + + Author + + + | Author | [facility] | + + + | Organization | [facility] | + + + | Address | Unknown | + + + | Phone | Unavailable | + + + Support + + +---------+ + | Name | Relationship | Address | Phone | + + +---------+ + | [place] | ECON | Unknown | Unavailable | + + +---------+ + Care Team Providers + +------+ + | Care Turkey Picker Name | Role | Phone | + +------+ + | Adama Patrick MD | PCP | | + +------+ + Encounter Details +--------+ + + + + | Date | Type | Department | Care Team | Description | +--------+ + + + + | 11/21/ | Shadowgraph Scale Operator | Surgical Oncology | Emely | Colon cancer | | 2012 | | at [facility] [address] | MD [address]ukhdeep [address] | metastasized to lung | | | | [address] Mail Code: | Bao Gaona, | ([facility]) (Primary Dx) | | | | [place] [facility] | [place] [address] | | | | | and Healing, | [phone] | | | | | [address] | | | | | | [place], [place] | | | | | | [address] | | | | | | [phone] | | | +--------+ + + + [...] the | | SLIDES | | | ([facility]) | results section. | + +--------+ [...] | PATHOLOGY | | | | Institution: [place] | | | | | | [facility], | | | | | | [place] | | | | | | [id number] Accession | | | | | | Number: [id number] | | | | | | Collection [...] | | | | | core biopsy ([id number], | | | | | | 07/09/2012, [place] | | | | | | Pathology,[place], | | | | | | [place]): - | | | | | | [...] (Phenopath | | | | | | Laboratories,[id number] | | | | | | 11-03), [...] | + + + + + | [facility] | [address] | [place] [address] | | | PATHOLOGY | [address] | | | + + + + + documented in this encounter Visit Diagnoses + + | Diagnosis | + + | Colon cancer metastasized to lung (HCC) - Primary Malignant neoplasm of colon, | | unspecified site | + + documented in this encounter"
--- OUTSIDE RECORDS SUMMARY | ~2018-12-04 | XMS | Encounter Summary ---
Demographics + + + | Address | [address] [place] [address] St | | | [place] [address] | + + + | Home Phone [...] Author + + + | Author | [facility] | + + + | Organization | [facility] | + + + | Address | Unknown | + + + | Phone | Unavailable | + + + Support + + +---------+ + | Name | Relationship | Address | Phone | + + +---------+ + | [place]eri [place] | ECON | Unknown | Unavailable | + + +---------+ + Care Team Providers + +------+ + | Care Oil Burner Journeyman Name | Role | Phone | + [...] | | | | | metastases | [address] | | | | | | (HCC) | [facility] | | | | | | Neuroendocri | [address] | | | | | | ne tumor | [facility] [place] | | | | | | Procedures | [address] | | | | | | PET [address] | Phone: | | | | | | DOTATATE | [phone] | | | | | | SKULL BASE | Fax: | | | | | | TO MID-THIGH | [phone] | | + +--------+ + + + + Reason for Visit + + + | Reason | Comments | + + + | Tumor Board | | | Recommendation | | + + + Encounter Details +--------+ + + + + | Date | Type | Department | Care Team | Description | +--------+ + + + + | 12/27/ | Loan Manager | Hematology/Medical | Sarah Kasper, | Liver metastases | | 2018 | | Oncology at [place] | [address] | (HCC) (Primary Dx); | | | | for Health & Healing | [address] | Neuroendocrine tumor | | | | [address] | [place] [address] | | | | | Mailcode: Center | [phone] | | | | | for Health and | | | | | | Healing, [address] | | | | | | [place], [place] | | | | | | [address] | | | | | | [phone] | | | +--------+ + + + [...]
--- OUTSIDE RECORDS SUMMARY | ~2018-12-04 | XMS | Encounter Summary ---
Demographics + + + | Address | [address] [place] [address] St | | | [place] [address] | + + + | Home Phone | | + + + | Preferred Language | Unknown | + + + | Marital Status | Single | + + + | Scientology Affiliation | Unknown | + + + | Race | White | + + + | Ethnic Group | Not or | + + + Author + + + | Author | [facility] | + + + | Organization | [facility] | + + + | Address | Unknown | + + + | Phone | Unavailable | + + + Support + + +---------+ + | Name | Relationship | Address | Phone | + + +---------+ + | [place]eri [place] | ECON | Unknown | Unavailable | + + +---------+ + Care Team Providers + +------+ + | Care Concrete Mixing Plant Laborer Name | Role | Phone | + [...] | | 2017 | | Oncology at [place] | [address] | | | | | for Health & Healing | Road [address] | | | | | [address] [facility] | [place] [address] | | | | | Mailcode: [place] | [phone] | | | | | for Health and | | | | | | [facility] 2 | | | | | | [place], [place] | | | | | | [address] | | | | | | [phone] | | | +--------+ + + + [...]
--- OUTSIDE RECORDS SUMMARY | ~2018-12-04 | XMS | Encounter Summary ---
Demographics + + + | Address | [address] [place] [address] St | | | [place] [address] | + + + | Home Phone | | + + + | Preferred Language | Unknown | + + + | Marital Status | Single | + + + | Cheondoism Affiliation | Unknown | + + + | Race | White | + + + | Ethnic Group | Not or | + + + Author + + + | Author | [facility] | + + + | Organization | [facility] | + + + | Address | Unknown | + + + | Phone | Unavailable | + + + Support + + +---------+ + | Name | Relationship | Address | Phone | + + +---------+ + | [place]eri [place] | ECON | Unknown | Unavailable | + + +---------+ + Care Team Providers + +------+ + | Care Bi Data Architect Name | Role | Phone | + [...] | | | | | metastases | [address] | | | | | | (HCC) | [address] | | | | | | Malignant | [address] | | | | | | neoplasm of | [place], [place] | | | | | | ascending | [address] | | | | | | colon (HCC) | Phone: | | | | | | Procedures | [phone] | | | | | | CT CHEST, | Fax: | | | | | | ABDOMEN AND | [phone] | | | | | | PELVIS [...] | | | | | (HCC) | [address] | | | | | | Procedures | [address] | | | | | | CT CHEST, | [place], [place] | | | | | | ABDOMEN AND | [address] | | | | | | PELVIS W IV | Phone: | | | | | | CONTRAST | [phone] | | | | | | | Fax: | | | | | | | [phone] | | + +--------+ + + + [...] MD | | | | | cancer [facility] | | [address] | | | | | to liver | | [facility] | | | | | | | [facility] [address] | | | | | | | [place], [place] | | | | | | | [address] Phone: | | | | | | | [phone] | | | | | | | Fax: | | | | | | | [phone] | + +---------+ + + + + Encounter Details +--------+---------+ + + + | Date | Type | Department | Care Team | Description | +--------+---------+ + + + | 12/17/ | Office | Hematology/Medical | Luis Alberto Kasper, | Liver metastases | | 2018 | Visit | Oncology at Center | [address] | (HCC) (Primary Dx); | | | | for Health & Healing | [address] | Malignant neoplasm | | | | [address] | [place] [address] | of ascending colon | | | | Mailcode: [place] | [phone] | (HCC) | | | | for Health and | | | | | | Healing, [facility] [address] | | | | | | [place], [place] | | | | | | [address] | | | | | | [phone] | | | +--------+---------+ + + + [...] NOTE Author: SHANNAN TORREZ MD Attending: LUIS ALBERTO KASPER MD Reason for Consult: Metastatic colon cancer vs. Neuroendocrine tumor Requesting Provider: Dr. Joseph Ndiaye MD Outpatient Soaker Hides/Oncologist: Dr. Joseph Ndiaye MD HPI: Mr. 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 Per accompanying consultative report ([facility], [id number]), the tumor cells are reportedly positive for synaptophysin and negative for CDX-2 and NKX3.1 (slides not available for review and reporteded to be technically sub-optimal and limited). Of note, [facility] reported exhaustion of the block, precluding [...] 12/19/17 locally. 2. 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 He is with one child. His social [...] plan outlined above. I spent 60 minutes [id number] with the patient and his spouse. I [...] would like to have that reviewed at [facility]. He has been followed with PET CT [...]
--- OUTSIDE RECORDS SUMMARY | ~2018-12-04 | XMS | Encounter Summary ---
Demographics + + + | Address | [address] [place] [address] St | | | [place] [address] | + + + | Home Phone | | + + + | Preferred Language | Unknown | + + + | Marital Status | Single | + + + | Nondenominational Affiliation | Unknown | + + + | Race | White | + + + | Ethnic Group | Not or | + + + Author + + + | Author | [facility] | + + + | Organization | [facility] | + + + | Address | Unknown | + + + | Phone | Unavailable | + + + Support + + +---------+ + | Name | Relationship | Address | Phone | + + +---------+ + | [place] | ECON | Unknown | Unavailable | + + +---------+ + Care Team Providers + +------+ + | Care Aircraft Captain Name | Role | Phone | + +------+ + | Adama Patrick MD | PCP | | + +------+ + Reason for Visit + + + | Reason | Comments | + + + | Conference Report | 12-24-12 MNLT recs | + + + Encounter Details +--------+ + + + + | Date | Type | Department | Care Team | Description | +--------+ + + + + | 12/25/ | Documentati | Surgical Oncology | Emely, | Conference Report | | 2012 | on | at [facility] [address] | MD Sukhdeep [address] | (12-24-12 [facility] | | | | [place] [place] Mail Code: | [address] Fern[address] [place], | recs) | | | | [facility] | [place] [address] | | | | | and Healing, | [phone] | | | | | [address] | | | | | | [place], [place] | | | | | | [address] | | | | | | [phone] | | | +--------+ + + + [...]
--- OUTSIDE RECORDS SUMMARY | ~2018-12-04 | XMS | Clinical Summary ---
Demographics + + + | Address | [address] | | | [place] [address] | + + + | Home Phone | | + + + | Preferred Language | Unknown | + + + | Marital Status | | + + + | Shinto Affiliation | 1013 | + + + | Race | Unknown | + + + | Ethnic Group | Unknown | + + + Author + + + | Author | [facility] (Historical as of | | | 10-19-18) | + + + | Organization | [facility] (Historical as of | | | 10-19-18) | + + + | Address | Unknown | + + + | Phone | Unavailable | + + + Support + + + + + | Name | Relationship | Address | Phone | + + + + + | Domo Noe | ECON | [address] | | | | | [place], [place] | | | | | [address] | | + + + + + Care Team Providers + +------+ + | Care Police Lieutenant Precinct Name | Role | Phone | + [...] | [employer] | [facility] | [id number] | | | | | | HEALTH [...] | Self | [birth year] | Home: | [address] | | | al/Fam | | 1956 | [phone] | [place] [address] | | | janette | | | [phone] | | + +--------+ +--------+ + +
--- OUTSIDE RECORDS SUMMARY | ~2018-12-04 | XMS | Encounter Summary ---
Demographics + + + | Address | [address] [place] [address] St | | | [place] [address] | + + + | Home Phone | | + + + | Preferred Language | Unknown | + + + | Marital Status | Single | + + + | Taoist Affiliation | Unknown | + + + | Race | White | + + + | Ethnic Group | Not or | + + + Author + + + | Author | [facility] | + + + | Organization | [facility] | + + + | Address | Unknown | + + + | Phone | Unavailable | + + + Support + + +---------+ + | Name | Relationship | Address | Phone | + + +---------+ + | [place]eri [place] | ECON | Unknown | Unavailable | + + +---------+ + Care Team Providers + +------+ + | Care Media Specialist Name | Role | Phone | [...] | | | | | metastases | [address] | | | | | | (HCC) | [facility] | | | | | | Neuroendocri | [address] | | | | | | ne tumor | [facility] [place] | | | | | | Procedures | [address] | | | | | | [address] | Phone: | | | | | | DOTATATE | [phone] | | | | | | SKULL BASE | Fax: | | | | | | TO MID-THIGH | [phone] | | + +--------+ + + + [...] | | | | | Liver | Sarha Ramirez MD | | | | | | metastases | [address] | | | | | | (HCC) | [facility] | | | | | | Neuroendocri | [address] | | | | | | ne tumor | [place] [employer], [place] | | | | | | Procedures | [address] | | | | | | [address] | Phone: | | | | | | DOTATATE | [phone] | | | | | | SKULL BASE | Fax: | | | | | | TO [facility] | [phone] | | + +--------+ + + + [...] | | | | (HCC) | [facility] | | | | | | Neuroendocri | [address] | | | | | | ne tumor | [place] [employer], [place] | | | | | | Procedures | [address] | | | | | | [address] | Phone: | | | | | | DOTATATE | [phone] | | | | | | SKULL BASE | Fax: | | | | | | TO [facility] | [phone] | | + +--------+ + + + + Encounter Details +--------+ + + + + | Date | Type | Department | Care Team | Description | +--------+ + + + + | 01/18/ | Hospital | Radiation Oncology | Sarah Kasper, | | | 2018 | Encounter | at [facility] [address] | [address] | | | | | [facility] | [place] [address] | | | | | [facility] | [place] [address] | | | | | [facility] | [phone] | | | | | [place], [place] | | | | | | [address] | | | | | | [phone] | | | +--------+ + + + [...]
--- OUTSIDE RECORDS SUMMARY | ~2018-12-04 | XMS | Clinical Summary ---
Demographics + + + | Address | [address] | | | [place] [address] | + + + | Home Phone | | + + + | Preferred Language | Unknown | + + + | Marital Status | | + + + | Confucianism Affiliation | Unknown | + + + | Race | Unknown | + + + | Ethnic Group | Unknown | + + + Author + + + | Author | [facility] | | | and [place] | + + + | Organization | [facility] | | | and [place] | + + + | Address | Unknown | + + + | Phone | Unavailable | + + + Support + + +---------+ + | Name | Relationship | Address | Phone | + + +---------+ + | [place]tha [place] | ECON | Unknown | | + + +---------+ + Care Team Providers + +------+ + | Care Program Or Project Administrator Name | Role | Phone | + +------+ + | Luis Bermudez MD | PCP | | + +------+ + Allergies + + + + + + | Active Allergy | Reactions | Severity | Noted | Comments | | | | | Date | | + + + + + + | Adhesive & Tape | Rash | Low | 07/17/19 | Paper tape okay | | | | | 19 | | + + + + + + | Enflurane | Unknown | | 12/20/19 | Had a reaction to | | | | | 13 | this anesthetic, but | | | | | | not sure what the | | | | | | reaction was. | | | | | | Notes allergy to | | | | | | Enflurane - | | | | | | discussed with him | | | | | | 07/31/18 and it does | | | | | | NOT seem to fit | | | | | | clinical picture of | | | | | | malignant | | | | | | hyperthermia. Seems | | | | | | he became | | | | | | combative/confused | | | | | | at the time of | | | | | | induction. Denies | | | | | | any report of fever, | | | | | | hospitalization, or | | | | | | family history of | | | | | | anesthesia allergy | | | | | | | + + + + + + | Atorvastatin | Other (See Comments) | Low | 03/02/20 | Erectile Dysfucion | | | | | 15 | | + + + + + + | Lisinopril | Other (See Comments) | Low | 03/02/20 | Drops blood | | | | | 15 | pressure very low - | | | | | | managing with dose | | | | | | adjustment | + + + + + + | Penicillins | Rash | Low | 03/02/20 | | | | | | 15 | | + + + + + + Medications + + + +---------+------+------+-------+ | Medication | Sig | Dispensed | Refills | Star | End | Statu | | | | | | t | Date | s | | | | | | Date | | | + + + +---------+------+------+-------+ | | Tale one tablet by | 40 | 5 | 04/ | | Activ | | diphenoxylate-atropi | mouth after each | tablet | | 08/22 | | e | | ne (LOMOTIL) | loose stool as | | | 19 | | | | 2.5-0.025 mg per | needed for diarrhea. | | | | | | | tabletIndications: | Maximum 8 tablets a | | | | | | | Diarrhea, | day. | | | | | | | unspecified type | | | | | | | + + + +---------+------+------+-------+ | TESTOSTERONE | Inject as directed | | 0 | | | Activ | | CYPIONATE IJ | every 14 days. | | | | | e | + + + +---------+------+------+-------+ | FAMOTIDINE PO | Take by mouth | | 0 | | | Activ | | | Daily. | | | | | e | + + + +---------+------+------+-------+ | LEVOTHYROXINE | Take by mouth | | 0 | | | Activ | | SODIUM PO | Daily. | | | | | e | + + + +---------+------+------+-------+ | Regorafenib | Take by mouth | | 0 | | | Activ | | (STIVARGA PO) | Daily. | | | | | e | + + + +---------+------+------+-------+ | tamsulosin | Take 0.4 mg by mouth | | 0 | | | Activ | | (FLOMAX) 0.4 mg CAPS | daily (after | | | | | e | | | breakfast). | | | | | | + + + +---------+------+------+-------+ | LISINOPRIL PO | Take by mouth | | 0 | | | Activ | | | Daily. | | | | | e | + + + +---------+------+------+-------+ | aspirin 81 mg EC | Take 81 mg by mouth | | 0 | | | Activ | | tablet | Daily. | | | | | e | + + + +---------+------+------+-------+ Active Problems + + + | Problem | Noted Date | + + + | Colon cancer metastasized to liver | 02/17/2015 | + + + + + | Overview: ACTIVE DIAGNOSIS: Metastatic [place] cancer to liver, | | primary unconfirmed. | + + + + + | Coronary atherosclerosis due to lipid rich plaque | 10/15/2014 | + + + | Dyslipidemia | 10/15/2014 | + + + | Dyspnea | 10/15/2014 | + + + | Cancer, metastatic to liver | 02/03/2013 | + + + | Atypical chest pain | 05/04/2011 | + + + | Arteriosclerosis of coronary artery | 05/04/2011 | + + + Social History + + + +--------+ + | Tobacco Use | Types | Packs/Day | Years | Date | | | | | Used | | + + + +--------+ + | Former Smoker | Cigarettes, Cigars | 1 | | Quit: 07/03/2018 | + + + +--------+ + + +------+---+--------+ | Smokeless Tobacco: | Chew | | Quit: | | Former User | | | 1976 | + +------+---+--------+ + + | Comments: quit smoking cigars 07/03/18 | + + + + +---------+ + | Alcohol Use | Drinks/We | oz/Week | Comments | | | ek | | | + + +---------+ + | Yes | 14 Cans | 8.4 | | | | of beer | | | + + +---------+ + [...] recent travel history available. | + + Last Filed Vital Signs + + + + | Vital Sign | Reading | Time Taken | + + + + | Blood Pressure | 116/54 | 07/31/20181309 PDT | + + + + | Pulse | 64 | 07/31/20181309 PDT | + + + + | Temperature | 36.5 C (97.7 F) | 07/31/20181302 PDT | + + + + | Respiratory Rate | 16 | 07/31/20181302 PDT | + + + + | Oxygen Saturation | 100% | 07/31/20181309 PDT | + + + + | Inhaled Oxygen | - | - | | Concentration | | | + + + + | Weight | 71.5 kg (157 lb 10.1 | 07/31/20181139 PDT | | | oz) | | + + + + | Height | 167.6 cm (5' 6") | 07/31/20181139 PDT | + + + + | Body Mass Index | 25.44 | 07/31/20181139 PDT | + + + + Plan of Treatment +--------+---------+ + + + | Date | Type | Specialty | Care Team | Description | +--------+---------+ + + + | 03/10/ | Office | Nephrology | Bebo Bazan MD | | | 2020 | Visit | | [facility] | | | | | | [facility] | | | | | | [address] | | | | | | | | +--------+---------+ + + + + + + + + | Health Maintenance | Due Date | Last Done | Comments | + + + + + | Vaccine: | | | | | Dtap/Tdap/Td (1 - | 3 | | | | Tdap) | | | | + + + + + | Vaccine: Zoster (1 | | | | | of 2) | 4 | | | + + + + + | Vaccine: | | | | | Pneumococcal 65+ | 9 | | | | Low/Medium Risk (1 | | | | | of 2 - PCV13) | | | | + + + + + | Vaccine: Influenza | | | | | (#1) | 9 | | | + + + + + Implants + +--------+--------+ +--------+--------+--------+ | Implanted | Type | Area | Manufacture | Device | Shelf | Model | | | | | r | | Expira | / | | | | | | Identi | tion | Serial | | | | | | fier | Date | / Lot | + +--------+--------+ +--------+--------+--------+ | Lens Tecnis Preloaded Pcb | Generi | Left: | KEENE | | 05/12/ | [id number] | | 18.0 - [id number]: | c | Eye | MEDICAL | | 2021 | 0180 | | Qty: 1 on 07/17/2018 by | | | [employer] - | | | /[id number] | | Néstor Schwarz MD | | | [place] | | | [address] | | | | | | | | /N/A | + +--------+--------+ +--------+--------+--------+ | Lens Tecnis Preloaded Pcb | Generi | Right: | KEENE | | 03/14/ | [id number] | | 18.5 - [id number]: | c | Eye | MEDICAL | | 2021 | 0185 | | Qty: 1 on 07/31/2018 by | | | [employer] - | | | /[id number] | | Néstor Schwarz MD | | | [place] | | | [address] | | | | | | | | / | + +--------+--------+ +--------+--------+--------+ Results Not on filefrom Last 3 Months Insurance + +--------+ +--------+ +---------+--------+ | Payer | Benefi | Subscriber | Effect | Phone | Address | Type | | | t Plan | ID | saundra | | | | | | / | | Dates | | | | | | Group | | | | | | + +--------+ +--------+ +---------+--------+ | MEDICARE | MEDICA | [id number] | 03/05/19 | [phone] | | Medica | | | RE | | 18-Pre | 5 | | re | | | PART A | | sent | | | | | | AND B | | | | | | + +--------+ +--------+ +---------+--------+ | [employer] | MAN[employer]AT | [id number] | 03/05/19 | | | Indemn | | | [place] | | 18-Pre | | | ity | | | LIFE | | sent | | | | | | MDCR | | | | | | | | SUPPL | | | | | | + +--------+ +--------+ +---------+--------+ + +--------+ +--------+ + + | Guarantor Name | Accoun | Relation to | Date | Phone | Billing Address | | | t Type | Patient | of | | | | | | | | | | + +--------+ +--------+ + + | [place] | Person | Self | [birth year] | | [phone] | | Robinson Sr. | al/Fam | | 1956 | [phone] | [place] [address] | | | janette | | | 3 (Home) | | + +--------+ +--------+ + + Advance Directives Patient has advance care planning documents, and code status on file. For more information, please contact:[facility] [place] [address] + + + + + | Code Status | Date | Date | Comments | | | Activated | Inactivated | | + + + + + | Full Code | 07/31/2018 | 07/31/2018 | | | | 13:05 | 15:23 | | + + + + +
--- OUTSIDE RECORDS SUMMARY | ~2018-12-04 | XMS | Encounter Summary ---
Demographics + + + | Address | [address] [place] [address] St | | | [place] [address] | + + + | Home Phone | | + + + | Preferred Language | Unknown | + + + | Marital Status | Single | + + + | Confucianism Affiliation [...] Team Providers + +------+ + | Care Sample Dye Mixer Name | Role | Phone | + +------+ + | Adama Patrick MD | PCP | | + +------+ + Encounter Details +--------+ + + + + | Date | Type | Department | Care Team | Description | +--------+ + + + + | 11/21/ | State Historical Society Director | [place] | Francisco Hernandes | Liver lesion | | 2012 | | Interventional | MD Paz [address] | (Primary Dx) | | | | [place] at [facility] | [address] | | | | | [address] | [place], [place] | | | | | Mailcode: [place] | [address] | | | | | [facility] [place] and | [phone] | | | | | Healing, [address] | | | | | | [place], [place] | | | | | | [address] | | | | | | [phone] | | | +--------+ + + + [...]
--- OUTSIDE RECORDS SUMMARY | ~2018-12-04 | XMS | Encounter Summary ---
Demographics + + + | Address | [address] [place] [address] St | | | [place] [address] | + + + | Home Phone | | + + + | Preferred Language | Unknown | + + + | Marital Status | Single | + + + | Adventist Affiliation | Unknown | + + + | Race | White | + + + | Ethnic Group | Not or | + + + Author + + + | Author | [facility] | + + + | Organization | [facility] | + + + | Address | Unknown | + + + | Phone | Unavailable | + + + Support + + +---------+ + | Name | Relationship | Address | Phone | + + +---------+ + | [place]eri [place] | ECON | Unknown | Unavailable | + + +---------+ + Care Team Providers + +------+ + | Care Media Arts Professor Name | Role | Phone | + [...] Board | | 2012 | | at [facility] [address] | MD Sukhdeep [address] | Recommendation | | | | [address] Mail Code: | [address] [place], | | | | | [facility] | [place] [address] | | | | | and Leonor | [phone] | | | | | [facility] [address] | | | | | | [place], [place] | | | | | | [address] | | | | | | [phone] | | | +--------+ + + + [...]
--- OUTSIDE RECORDS SUMMARY | ~2018-12-04 | XMS | Encounter Summary ---
Demographics + + + | Address | [address] [place] [address] St | | | [place] [address] | + + + | Home Phone | | + + + | Preferred Language | Unknown | + + + | Marital Status | Single | + + + | Anglican Affiliation | Unknown | + + + | Race | White | + + + | Ethnic Group | Not or | + + + Author + + + | Author | [facility] | + + + | Organization | [facility] | + + + | Address | Unknown | + + + | Phone | Unavailable | + + + Support + + +---------+ + | Name | Relationship | Address | Phone | + + +---------+ + | Keri Lake | ECON | Unknown | Unavailable | + + +---------+ + Care Team Providers + +------+ + | Care Tag Clerk Name | Role | Phone | + +------+ + | Luis Bermudez MD | PCP | | + +------+ + Encounter Details +--------+ + + + + | Date | Type | Department | Care Team | Description | +--------+ + + + + | 12/17/ | Molecular Biology Professor | Hematology/Medical | Sarah Kasper, | Metastatic colon | | 2018 | | Oncology at [place] | [address] | cancer to liver | | | | for Health & Healing | [address] | (HCC) (Primary Dx) | | | | [address] | [place] [address] | | | | | Mailcode: [place] | [phone] | | | | | for Health and | | | | | | Healing, [address] | | | | | | [place], [place] | | | | | | [address] | | | | | | [phone] | | | +--------+ + + + [...] | PATHOLOGY CONSULT - | Routin | 12/24/2017 | Metastatic colon | Results for this | | REVIEW OUTSIDE | e | 10:05 AM | cancer to liver | procedure are in the | | SLIDES | | PDT | (HCC) | results section. | + +--------+ + + + documented in this encounter Results PATHOLOGY CONSULT - REVIEW OUTSIDE SLIDES (12/24/2017 10:05 AM PDT) + + + + + + | Component | Value | Ref Range | Performed | Pathologist | | | | | At | Signature | + + + + + + | Final | Liver, needle biopsies | | [facility] | Electronically | | Pathologic | ([id number]; 03/20/14): - | | DEPARTMENT | signed by | | Diagnosis | Metastatic carcinoma | | OF | Junior Hackett | | | [see comment]Comment: | | PATHOLOGY | Lara, | | | This is a challenging | | | ,PhD on | | | case. There is a | | | 01/17/2018 at | | | malignant cell | | | 9:02 AM | | | population with tightly | | | | | | nested and acinar growth | | | | | | patterns. The cells | | | | | | have moderate amounts of | | | | | | fine to granular | | | | | | azurophilic cytoplasm. | | | | | | Nuclei are enlarged, | | | | | | mildly pleomorphic and | | | | | | have fine chromatin with | | | | | | a single prominent | | | | | | visible nucleolus. | | | | | | Mitotic figures are | | | | | | noted and there is | | | | | | necrotic debris. The | | | | | | provided immunostains | | | | | | show the malignant cells | | | | | | are positive for CK7 | | | | | | and synaptophysin while | | | | | | negative for CDX2, | | | | | | Melan-A, HSA, NSE, | | | | | | calretinin and CEA. Per | | | | | | report, the tissue | | | | | | block is no longer | | | | | | available for further | | | | | | work-up. In this | | | | | | context, the negative | | | | | | calretinin stain was | | | | | | digitally scanned and | | | | | | then the section was | | | | | | re-stained with Trypsin | | | | | | which show granular | | | | | | cytoplasmic staining in | | | | | | the tumor cells | | | | | | (positive). The combined | | | | | | morphology and | | | | | | immunophenotype raise | | | | | | the possibility of a | | | | | | metastatic acinar cell | | | | | | carcinoma, metastatic | | | | | | neuroendocrine tumor, a | | | | | | mixed | | | | | | neuroendocrine/acinar | | | | | | tumor or a metastatic | | | | | | carcinoma with | | | | | | neuroendocrine features. | | | | | | The nuclear features | | | | | | would be unusual for a | | | | | | pure well-differentiated | | | | | | neuroendocrine tumor | | | | | | and are more typical of | | | | | | acinar cell carcinoma. | | | | | | The positive trypsin | | | | | | staining points more to | | | | | | an acinar cell carcinoma | | | | | | as well; however, the | | | | | | staining method is not | | | | | | specifically validated | | | | | | for a previously stained | | | | | | section and so the | | | | | | results can only be | | | | | | regarded as suggestive. | | | | | | Regardless, a | | | | | | pancreatic primary is a | | | | | | consideration and should | | | | | | be reasonably excluded. | | | | | | Lack of CDX2 staining | | | | | | makes an | | | | | | intestinal/colorectal | | | | | | origin of low | | | | | | probability.In the | | | | | | absence of more tissue, | | | | | | correlation with imaging | | | | | | and clinical findings | | | | | | is required for final | | | | | | determination of tumor | | | | | | origin. Junior | | | | | | MD Lara, PhD | | | | | | | | | | | | PathologistPathology, | | | | | | [facility] | | | | | | University electronic | | | | | | signature indicates that | | | | | | I have personally | | | | | | reviewed all diagnostic | | | | | | slides, the gross and/or | | | | | | microscopic portion of | | | | | | this report and | | | | | | formulated the final | | | | | | diagnosis. | | | | + + + + + + | Materials | Specimen AReferring | | [facility] | | | Received | Institution: [facility] | | DEPARTMENT | | | | Diagnostics, [place], | | [place] | | | | [place] [address] | | PATHOLOGY | | | | Accession Number: | | | | | | [id number] Collection | | | | | | Date: 03/20/2014H&E | | | | | | IHC's 3 9 | | | | + + + + + + | Ancillary | Analyte specific | | [facility] | | | Information | reagents are used in | | DEPARTMENT | | | | many laboratory tests | | OF | | | | necessary for standard | | PATHOLOGY | | | | medical care. This test | | | | | | was developed and its | | | | | | performance | | | | | | characteristics | | | | | | determined by [facility] | | | | | | laboratories. It has | | | | | | not been cleared or | | | | | | approved by the US Food | | | | | | and Drug Administration | | | | | | (FDA). FDA does not | | | | | | require this test to go | | | | | | through premarket FDA | | | | | | review. This test is | | | | | | used for clinical | | | | | | purposes. It should not | | | | | | be regarded as | | | | | | investigational or for | | | | | | research. This | | | | | | laboratory is certified | | | | | | under the Clinical | | | | | | Laboratory Improvement | | | | | | Amendments (CLIA) as | | | | | | qualified to perform | | | | | | high complexity clinical | | | | | | laboratory testing. | | | | + + + + + + + + | Specimen | + + | Slide-Block | + + + + + + + | Performing | Address | City/State/Zipcode | Phone Number | | Organization | | | | + + + + + | [facility] | [address] | [place] [address] | | | PATHOLOGY | [address] | | | + + + + + documented in this encounter Visit Diagnoses + + | Diagnosis | + + | Metastatic colon cancer to liver (HCC) - Primary Malignant neoplasm of colon, | | unspecified site | + + documented in this encounter
--- OUTSIDE RECORDS SUMMARY | ~2018-12-04 | XMS | Clinical Summary ---
Demographics + + + | Address | [address] [place] [address] St | | | [place] [address] | + + + | Home Phone [...] Author + + + | Author | [facility] | + + + | Organization | [facility] | + + + | Address | Unknown | + + + | Phone | Unavailable | + + + Support + + +---------+ + | Name | Relationship | Address | Phone | + + +---------+ + | Keri Lake | ECON | Unknown | Unavailable | + + +---------+ + Care Team Providers + +------+ + | Care Quantitative Developer Name | Role | Phone | + +------+ + | Luis Bermudez MD | PCP | | + +------+ + Source Comments [facility] and [facility] Allergies + + + + + + | Active Allergy | Reactions | Severity | Noted | Comments | | | | | Date | | + + + + + + | Enflurane | Unknown | | 12/20/19 | Pt unsure about | | | | | 13 | rxn | + + + + + + | Penicillin G | Rash | | 12/19/19 | | | | | | 13 | | + + + + + + Medications + + + +---------+------+------+-------+ | Medication | Sig | Dispensed | Refills | Star | End | Statu | | | | | | t | Date | s | | | | | | Date | | | + + + +---------+------+------+-------+ | Gallium Nitrate 25 | Inject into the | | 0 | | | Activ | | mg/mL Intravenous | vein (IV). Patient | | | | | e | | Solution | reports gallium | | | | | | | | maltolate ("special | | | | | | | | mix") from family | | | | | | | | member. | | | | | | + + + +---------+------+------+-------+ | aspirin EC 81 mg | Take 81 mg by mouth | | 0 | | | Activ | | Oral tablet,delayed | once daily. | | | | | e | | release (DR/EC) | | | | | | | + + + +---------+------+------+-------+ | simvastatin 80 mg | Take 80 mg by mouth | | 0 | | | Activ | | Oral tablet | once daily in the | | | | | e | | | evening. | | | | | | + + + +---------+------+------+-------+ | sildenafil 10 mg | Take by mouth. | | 0 | | | Activ | | Oral tablet | | | | | | e | + + + +---------+------+------+-------+ | loperamide 2 mg | Take 2 mg by mouth | | 0 | | | Activ | | Oral capsule | four times daily as | | | | | e | | | needed. | | | | | | + + + +---------+------+------+-------+ | omeprazole 20 mg | Take 20 mg by mouth | | 0 | | | Activ | | Oral capsule,delayed | once daily. | | | | | e | | release(/EC) | | | | | | | + + + +---------+------+------+-------+ | LORazepam 1 mg | Take 1 mg by mouth | | 0 | | | Activ | | Oral tablet | every four hours as | | | | | e | | | needed. | | | | | | + + + +---------+------+------+-------+ Active Problems + + + | Problem | Noted Date | + + + | Neuroendocrine tumor | 12/27/2017 | + + + | Liver metastases | 12/17/2017 | + + + | ED (erectile dysfunction) | 12/19/2012 | + + + + + | Overview: On viagra, | + + + + + | Elevated cholesterol | 12/19/2012 | + + + + + | Overview: On a statin | + + + + + | CAD (coronary artery disease) | 12/19/2012 | + + + + + | Overview: CABG-2006 | + + + + + | HTN (hypertension) | 12/19/2012 | + + + Resolved Problems + + + + | Problem | Noted | Resolved | | | Date | Date | + + + + | Liver lesion | 11/22/19 | | | | 13 | 8 | + + + + + + | Overview: Likely diagnosis: CRC cancer with liver metastases | + + Family History + + +------+ + | Medical History | Relation | Name | Comments | + + +------+ + | Cancer | Maternal | | brain | | | Grandfath | | | | | er | | | + + +------+ + | Heart Disease | Maternal | | | | | Grandmoth | | | | | er | | | + + +------+ + | Diabetes | Mother | | | + + +------+ + | Heart Disease | Paternal | | | | | Grandfath | | | | | er | | | + + +------+ + | GI bleeding | Paternal | | | | | Grandmoth | | | | | er | | | + + +------+ + | Colon Cancer | Neg Hx | | | + + +------+ + + +------+--------+ + | Relation | Name | Status | Comments | + +------+--------+ + | Maternal Grandfather | | | | + +------+--------+ + | Maternal Grandmother | | | | + +------+--------+ + | Mother | | | | + +------+--------+ + | Paternal Grandfather | | | | + +------+--------+ + | Paternal Grandmother | | | | + +------+--------+ + Social History + + + +--------+ [...] | | + + + + + Plan of Treatment + + + + + | Health Maintenance | Due Date | Last Done | Comments | + + + + + | Pneumococcal | | | | | vaccination (1 of 2 | 9 | | | | - PCV13) | | | | + + + + + | Influenza (Flu) | | | | | vaccination (#1) | 9 | | | + + + + + Results Not on filefrom Last 3 Months Insurance + +--------+ +--------+ + +--------+ | Payer | Benefi | Subscriber | Effect | Phone | Address | Type | | | t Plan | ID | saundra | | | | | | / | | Dates | | | | | | Group | | | | | | + +--------+ +--------+ + +--------+ | MEDICARE | MEDICA | xxxxxxxxxxx | 03/05/19 | [phone] | [address] | Medica | | | RE A & | | 18-Pre | 1 | 2 | re | | | B | | sent | | [place], [place] | | | | | | | | [address] | | + +--------+ +--------+ + +--------+ | COMMERCIAL | INDIVI | [phone] | Effect | | | Indemn | | INDIVIDUAL | DUAL | | saundra | | | ity | | | COMMER | | for | | | | | | CIAL | | all | | | | | | | | dates | | | | + +--------+ +--------+ + +--------+ + +--------+ +--------+ + + | Guarantor Name | Accoun | Relation to | Date | Phone | Billing Address | | | t Type | Patient | of | | | | | | | | | | + +--------+ +--------+ + + | James Lake | Person | Self | [birth year] | | [address] [address] | [address] | al/Favian | | 1956 | [phone] | [place] [address] | | | janette | | | 3 (Home) | | + +--------+ +--------+ + +
--- OUTSIDE RECORDS SUMMARY | ~2018-12-04 | XMS | Clinical Summary ---
Demographics + + + | Address | [address] [place] [address] St | | | [place] [address] | + + + | Home Phone | | + + + | Preferred Language | Unknown | + + + | Marital Status | Single | + + + | Religion Affiliation | Unknown | + + + | Race | White | + + + | Ethnic Group | Not or | + + + Author + + + | Author | [facility] | + + + | Organization | [facility] | + + + | Address | Unknown | + + + | Phone | Unavailable | + + + Support + + +---------+ + | Name | Relationship | Address | Phone | + + +---------+ + | Keri Lake | ECON | Unknown | Unavailable | + + +---------+ + Care Team Providers + +------+ + | Care Garment Parts Cutter Machine Name | Role | Phone | + +------+ + | Luis Bermudez MD | PCP | | + +------+ + Source Comments GEETHA is fully live on both [facility] and [facility] Allergies + + + + [...] | MEDICA | xxxxxxxxxxx | 03/05/19 | [phone] | [address] | Medica | | | RE A & | | 18-Pre | 1 | 2 | re | | | B | | sent | | [place], [place] | | | | | | | | [address] | | + +--------+ +--------+ + +--------+ [...] Person | Self | [birth year] | | [address] [address] | | [place] | al/Favian | | 1956 | [phone] | [place] [address] | | | janette | | | 3 (Home) | | + +--------+ +--------+ + +
--- OUTSIDE RECORDS SUMMARY | ~2018-12-04 | XMS | Encounter Summary ---
Demographics + + + | Address | [address] [place] [address] St | | | [place] [address] | + + + | Home Phone [...] + + + | Author | [facility] | + + + | Organization | [facility] | + + + | Address | Unknown | + + + | Phone | Unavailable | + + + Support + + +---------+ + | Name | Relationship | Address | Phone | + + +---------+ + | Keri Lake | ECON | Unknown | Unavailable | + + +---------+ + Care Team Providers + +------+ + | Care Garment Mender Name | Role | Phone | + +------+ + | Adama Patrick MD | PCP | | + +------+ + Reason for Visit + + + | Reason | Comments | + + + | New patient | adenocarcinoma, liver mets-presumed CRC primary | | consultation | | + + + Consultation (Routine) +--------+--------+ + + + + | Status | Reason | Specialty | Diagnoses / | Referred By | Referred To | | | | | Procedures | Contact | Contact | +--------+--------+ + + + + | Closed | | Interventiona | Diagnoses | | Greta, | | | | l Radiology | colon ca | Emely | Francisco Mullen MD | | | | | w/liver mets | MD Sukhdeep | [address] | | | | | | [address] | [address] | | | | | | [address] | Rd | | | | | | [place], [place] | [place], [place] | | | | | | [address] | [address] | | | | | | Phone: | Phone: | | | | | | [phone] | [phone] | | | | | | Fax: | Fax: | | | | | | [phone] | [phone] | +--------+--------+ + + + + Encounter Details +--------+---------+ + + + | Date | Type | Department | Care Team | Description | +--------+---------+ + + + | 12/18/ | Office | Mateusz | Francisco Hernandes | Liver lesion | | 2013 | Visit | Interventional | MD Paz [address] | (Primary Dx) | | | | [facility] at [facility] | [address] | | | | | [address] | [place], [place] | | | | | Mailcode: [place] | [address] | | | | | for [facility] and | [phone] | | | | | [facility] [address] | | | | | | [facility] [place] | | | | | | [address] | | | | | | [phone] | | | +--------+---------+ + + + [...] + + + | Blood Pressure | 121/82 | 12/18/2012 3:28 PM | | | | | PDT | | + + + + + | Pulse | 68 | 12/18/2012 3:28 PM | | | | | PDT | | + + + + + | Temperature | 36.4 C (97.6 F) | 12/18/2012 3:28 PM | | | | | PDT | | + + + + + | Respiratory Rate | 16 | 12/18/2012 3:28 PM | | | | | PDT | | + + + + + | Oxygen Saturation | - | - | | + + + + + | Inhaled Oxygen | - | - | | | Concentration | | | | + + + + + | Weight | 68.9 kg (151 lb 14.4 | 12/18/2012 3:28 PM | | | | oz) | PDT | | + + + + + | Height | 167.6 cm (5' 6") | 12/18/2012 3:28 PM | | | | | PDT | | + + + + + | Body Mass Index | 24.52 | 12/18/2012 3:28 PM | | | | | PDT | | + + + + + documented in this encounter Patient Instructions Patient Instructions Penelope Franks RN - 12/18/2012 3:08 PM PDTIf you have not been scheduled for a procedure, a nurse coordinator will contact you next week to follow up on yo ur care plan. Feel free to contact Penelope Franks RN at #[phone], if you have any questions. documented in this encounter Progress Notes Francisco Hernandes MD - 12/19/2012 7:43 PM PDT Outpatient Consultation Date: 12/19/2012 Patient Name: James [...] by mouth every four hours as needed. Milk Thistle 300 mg Oral capsule Take by mouth. omeprazole 20 mg Oral capsule,delayed release(DR/EC) Take 20 mg by mouth once daily. sildenafil 10 mg Oral tablet Take by mouth. simvastatin 80 mg Oral tablet Take 80 mg by mouth once daily in the evening. No current facility-administered medications for this visit. ALLERGIES: Allergies Allergen Reactions Ethrane (Enflurane) Unknown Pt unsure about rxn Penicillin G [...] Past Medical and Surgical History: Past Medical History Diagnosis Date Coronary artery disease Headache Arthritis Cancer Chronic pain ED (erectile dysfunction) 12/19/2012 On viagra, Elevated cholesterol 12/19/2012 On a statin Past Surgical History Procedure Laterality Date Vasectomy Nasal septum repair Family History: Family History Problem Relation Diabetes Mother Heart Disease Maternal Grandmother Heart Disease Paternal Grandfather GI bleeding Paternal Grandmother Cancer Maternal Grandfather brain James Lake has no family history of liver disease or liver cancer. 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 He is with one child. His [...] minimal) Elaborate Abnormal Find ings Constitutional: BP 121/82 | Pulse 68 | Temp (Src) 36.4 C (97.6 F) (Oral) | RR 16 | Ht 1.676 m (5' 6") | Wt 68.901 kg (151 lb 14.4 oz) | BMI 24.53 kg/(m^2) Appearance: well nourished, no apparent distress [...] on the appropriate therapy for the patient). James Bowers Jaya currently wishes to proceed with the plan outlined above. I spent 60 minutes [id number] with the patient and his spouse. I spent more than 50% of this visit in counseling the patient in regards to the imaging findings, treatment options, as well as the risks and benefits of the procedures described above. documented in this encounter Plan of Treatment Not on filedocumented as of this encounter Visit Diagnoses + + | Diagnosis | + + | Liver lesion - Primary Other specified disorders of liver | + + documented in this encounter
--- OUTSIDE RECORDS SUMMARY | ~2018-12-04 | XMS | Encounter Summary ---
Demographics + + + | Address | [address] [place] [address] St | | | [place] [address] | + + + | Home Phone [...] Author + + + | Author | [facility] | + + + | Organization | [facility] | + + + | Address | Unknown | + + + | Phone | Unavailable | + + + Support + + +---------+ + | Name | Relationship | Address | Phone | + + +---------+ + | Keri Lake | ECON | Unknown | Unavailable | + + +---------+ + Care Team Providers + +------+ + | Care Vibrating Screen Operator Name | Role | Phone | + +------+ + | Luis Bermudez MD | PCP | | + +------+ + Encounter Details +--------+ + + + + | Date | Type | Department | Care Team | Description | +--------+ + + + + | 12/17/ | Behaviorist | Hematology/Medical | Sarah Kasper, | Metastatic colon | | 2018 | | Oncology at [place] | [address] | cancer to liver | | | | for Health & Healing | [address] | (HCC) (Primary Dx) | | | | [address] | [place] [address] | | | | | Mailcode: [place] | [phone] | | | | | for Health and | | | | | | Healing, [address] | | | | | | [place], [place] | | | | | | [address] | | | | | | [phone] | | | +--------+ + + + [...] PathologistPathology, | | | | | | [facility] | | | | | | University [...] [facility] | | | Received | Institution: [facility] | | DEPARTMENT | | | | Diagnostics, [place], | | [place] | | | | [place] [address] | | PATHOLOGY | | | | Accession Number: | | | | | | [id number] Collection | | | | | | [...] | + + + + + | [facility] | [address] | [place] [address] | | | PATHOLOGY | [address] | | | + + + + + documented in this encounter Visit Diagnoses + + | Diagnosis | + + | Metastatic colon cancer to liver (HCC) - Primary Malignant neoplasm of colon, | | unspecified site | + + documented in this encounter
--- OUTSIDE RECORDS SUMMARY | ~2018-12-04 | XMS | Encounter Summary ---
Demographics + + + | Address | [address] [place] [address] St | | | [place] [address] | + + + | Home Phone | | + + + | Preferred Language | Unknown | + + + | Marital Status | Single | + + + | Jehovah'S Witness Affiliation | Unknown | + + + [...] Team Providers + +------+ + | Care Skate Hop Name | Role | Phone | + +------+ + | Luis Bermudez MD | PCP | | + +------+ + Encounter Details +--------+ + + + + | Date | Type | Department | Care Team | Description | +--------+ + + + + | 12/17/ | Procedure | Diagnostic Imaging | | | | 2017 | Pass | Services at [facility] | | | | | | [address] | | | | | | [place] Mailcode: | | | | | | [address] [facility] | | | | | | [place], [place] | | | | | | [address] | | | | | | [phone] | | | +--------+ + + + [...]
--- OUTSIDE RECORDS SUMMARY | ~2018-12-04 | XMS | Encounter Summary ---
Demographics + + + | Address | [address] [place] [address] St | | | [place] [address] | + + + | Home Phone [...] + + + | Author | [facility] | + + + | Organization | [facility] | + + + | Address | Unknown | + + + | Phone | Unavailable | + + + Support + + +---------+ + | Name | Relationship | Address | Phone | + + +---------+ + | Keri Lake | ECON | Unknown | Unavailable | + + +---------+ + Care Team Providers + +------+ + | Care Banquet Attendant Name | Role | Phone | + +------+ + | Luis Bermudez MD | PCP | | + +------+ + Encounter Details +--------+ + + + + | Date | Type | Department | Care Team | Description | +--------+ + + + + | 12/17/ | Document-Sc | Hematology/Medical | Sarah Kasper, | | | 2018 | anned | Oncology at [place] | [address] | | | | | for Health & Healing | [address] [facility] [address] | | | | | [address] | [place] [address] | | | | | Mailcode: [place] | [phone] | | | | | for Health and | | | | | | Healing, [address] | | | | | | [place], [place] | | | | | | [address] | | | | | | [phone] | | | +--------+ + + + [...]
--- OUTSIDE RECORDS SUMMARY | ~2018-12-04 | XMS | Encounter Summary ---
Demographics + + + | Address | [address] [place] [address] St | | | [place] [address] | + + + | Home Phone | | + + + | Preferred Language | Unknown | + + + | Marital Status | Single | + + + | Restoration Affiliation | Unknown | + + + | Race | White | + + + | Ethnic Group | Not or | + + + Author + + + | Author | [facility] | + + + | Organization | [facility] | + + + | Address | Unknown | + + + | Phone | Unavailable | + + + Support + + +---------+ + | Name | Relationship | Address | Phone | + + +---------+ + | [place]eri [place] | ECON | Unknown | Unavailable | + + +---------+ + Care Team Providers + +------+ + | Care Vibration Analyst Name | Role | Phone | + +------+ + | Adama Patrick MD | PCP | | + +------+ + Encounter Details +--------+ + + + + | Date | Type | Department | Care Team | Description | +--------+ + + + + | 11/25/ | Hospital | LAB SURGICAL | | | | 2012 | Encounter | PATHOLOGY [address] | | | | | | [address] | | | | | | [place], [place] | | | | | | [address] | | | +--------+ + + + [...] + | OUTSIDE RADIOLOGY - | | 11/01/2012 | | Results for this | | NUC MED | | 12:00 AM | | procedure are in the | | | | PDT | | results section. | + +--------+ + + + | OUTSIDE LAB - | | 09/17/2012 | | Results for this | | HEMATOLOGY | | 12:00 AM | | procedure are in the | | | | PDT | | results section. | + +--------+ + + + | OUTSIDE LAB - | | 07/09/2012 | | Results for this | | PATHOLOGY | | 12:00 AM | | procedure are in the | | | | PDT | | results section. | + +--------+ + + + | OUTSIDE RADIOLOGY - | | 06/25/2012 | | Results for this | | CT | | 12:00 AM | | procedure are in the | | | | PDT | | results section. | + +--------+ + + + documented in this encounter Results OUTSIDE RADIOLOGY - NUC MED (11/01/2012 12:00 AM PDT) + + + | Narrative | Performed At | + + + | | | | | | + + + + + | Procedure Note | + + | Shanice Faculty - 12/06/2012 2:05 PM PDT | + + OUTSIDE LAB - HEMATOLOGY (09/17/2012 12:00 AM PDT) + + + | Narrative | Performed At | + + + | | | | | | + + + + + | Procedure Note | + + | Agustin Prasad - 12/06/2012 2:05 PM PDT | + + OUTSIDE LAB - PATHOLOGY (07/09/2012 12:00 AM PDT) + + + | Narrative | Performed At | + + + | | | | | | + + + + + | Procedure Note | + + | Shanice, Faculty - 12/06/2012 2:05 PM PDT | + + OUTSIDE RADIOLOGY - CT (06/25/2012 12:00 AM PDT) + + + | Narrative | Performed At | + + + | | | | | | + + + + + | Procedure Note | + + | Other, Faculty - 12/06/2012 2:05 PM PDT | + + documented in this encounter Visit Diagnoses Not on filedocumented in this encounter"
--- OUTSIDE RECORDS SUMMARY | ~2018-12-04 | XMS | Encounter Summary ---
Demographics + + + | Address | [address] [place] [address] St | | | [place] [address] | + + + | Home Phone [...] + + + | Author | [facility] | + + + | Organization | [facility] | + + + | Address | Unknown | + + + | Phone | Unavailable | + + + Support + + +---------+ + | Name | Relationship | Address | Phone | + + +---------+ + | Keri [place] | ECON | Unknown | Unavailable | + + +---------+ + Care Team Providers + +------+ + | Care Development Disability Specialist Name | Role | Phone | [...] | | | | | Malignant | [place], [place] | [address] [facility] | | | | | neoplasm of | [address] | [facility] | | | | | colon, | Phone: | [place], [place] | | | | | unspecified | [phone] | [address] | | | | | site | Fax: | Phone: | | | | | Procedures | [phone] | [phone] | | | | | CT CHEST, | | Fax: | | | | | ABDOMEN & | | [phone] | | | | | PELVIS WWO | | | | | | | IV CONTRAST | | | | | | | DC CAT SCAN | | | | | | | OF CHEST | | | | | | | COMBO DC CT | | | | | | [...] + + + + | 11/20/ | Medical Claims Processor | Surgical Oncology | Emeyl, | 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
--- OUTSIDE RECORDS SUMMARY | ~2018-12-04 | XMS | Encounter Summary ---
Demographics + + + | Address | [address] [place] [address] St | | | [place] [address] | + + + | Home Phone [...] + + + | Author | [facility] | + + + | Organization | [facility] | + + + | Address | Unknown | + + + | Phone | Unavailable | + + + Support + + +---------+ + | Name | Relationship | Address | Phone | + + +---------+ + | Keri Lake | ECON | Unknown | Unavailable | + + +---------+ + Care Team Providers + +------+ + | Care Human Factors Advisor Lead Name | Role | Phone | + +------+ + | Adama Patrick MD | PCP | | + +------+ + Encounter Details +--------+ + + + + | Date | Type | Department | Care Team | Description | +--------+ + + + + | 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
--- OUTSIDE RECORDS SUMMARY | ~2018-12-04 | XMS | Clinical Summary ---
Demographics + + + | Address | [address] | | | [place] [address] | + + + | Home Phone | | + + + | Preferred Language | Unknown | + + + | Marital Status | | + + + | Gnosticism Affiliation | Unknown | + + + | Race | Unknown | + + + | Ethnic Group | Unknown | + + + Author + + + | Author | [facility] | | | and [place] | + + + | Organization | [facility] | | | and [...] Team Providers + +------+ + | Care Brim Setter Name | Role | Phone | + [...] 2020 | Visit | | [address] [facility] | | | | | | [address] [facility] | | | | | | [address] | | | | | | | [...] Left: | KEENE | | 05/12/ | [id number] | | 18.0 - [id number]: | c | Eye | MEDICAL | | 2021 | 0180 | | Qty: 1 on 07/17/2018 by | | | [employer] - | | | /[id number] | | Néstor Schwarz MD | | | [place] | | | [address] | | | | | | | | /N/A | + +--------+--------+ +--------+--------+--------+ | Lens Tecnis Preloaded Pcb | Generi | Right: | KEENE | | 03/14/ | [id number] | | 18.5 - [id number]: | c | Eye | MEDICAL | | 2021 | 0185 | | Qty: 1 on 07/31/2018 by | | | [employer] - | | | /[id number] | | Néstor Schwarz MD | | | [place] | | | [address] | | | | | | | [...] +--------+ +---------+--------+ | MEDICARE | MEDICA | [id number] | 03/05/19 | [phone] | | Medica | | | RE | | 18-Pre | 5 | | re | | | PART A | | sent | | | | | | AND B | | | | | | + +--------+ +--------+ +---------+--------+ | [employer] | MANHAT | [id number] | 03/05/19 | | | Indemn | [...] Person | Self | [birth year] | [id number] | | Robinson Sr. | al/Fam | | 1956 | [phone] | [place] [address] | | | janette | | | 3 (Home) | | + +--------+ +--------+ + + Advance Directives Patient has advance care planning documents, and code status on file. For more information, please contact:[facility] SUNI Kohli [address] + + + + + | Code Status | Date | Date | Comments | | | Activated | Inactivated | | + + + + + | Full Code | 07/31/2018 | 07/31/2018 | | | | 13:05 | 15:23 | | + + + + +
--- OUTSIDE RECORDS SUMMARY | ~2018-12-04 | XMS | Encounter Summary ---
Demographics + + + | Address | [address] [place] [address] St | | | [place] [address] | + + + | Home Phone | | + + + | Preferred Language | Unknown | + + + | Marital Status | Single | + + + | Catholic Affiliation | Unknown | + + + | Race | White | + + + | Ethnic Group | Not or | + + + Author + + + | Author | [facility] | + + + | Organization | [facility] | + + + | Address | Unknown | + + + | Phone | Unavailable | + + + Support + + +---------+ + | Name | Relationship | Address | Phone | + + +---------+ + | [place]eri [place] | ECON | Unknown | Unavailable | + + +---------+ + Care Team Providers + +------+ + | Care Senior Cobol Developer Name | Role | Phone | [...] [address] | | | | | | [place], [place] | [place], [place] | | | | | | [address] | [address] | | | | | | Phone: | Phone: | | | | | | [phone] | [phone] | | | | | | Fax: | Fax: | | | | | | [phone] | [phone] | +--------+--------+ + + + + Encounter Details +--------+---------+ + + + | Date | Type | Department | Care Team | Description | +--------+---------+ + + + | 12/18/ | Office | Mateusz | Francisco Hernandes | Liver lesion | | 2013 | Visit | Interventional | MD Paz [address] | (Primary Dx) | | | | [place] at [facility] | [address] | | | | | [address] | [place], [place] | | | | | Mailcode: [place] | [address] | | | | | for [facility] and | [phone] | | | | | [facility] [address] | | | | | | [facility] [place] | | | | | | [address] | | | | | | [phone] | | | +--------+---------+ + + + [...] free to contact Penelope Franks RN at #[phone], if you have any questions. 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 He is with one child. His social [...] plan outlined above. I spent 60 minutes [id number] with the patient and his spouse. I [...]
--- OUTSIDE RECORDS SUMMARY | ~2018-12-04 | XMS | Encounter Summary ---
Demographics + + + | Address | [address] [place] [address] St | | | [place] [address] | + + + | Home Phone [...] Author + + + | Author | [facility] | + + + | Organization | [facility] | + + + | Address | Unknown | + + + | Phone | Unavailable | + + + Support + + +---------+ + | Name | Relationship | Address | Phone | + + +---------+ + | [place]eri [place] | ECON | Unknown | Unavailable | + + +---------+ + Care Team Providers + +------+ + | Care Laborer Operator Name | Role | Phone | + +------+ + | Adama Patrick MD | PCP | | + +------+ + Encounter Details +--------+ + + + + | Date | Type | Department | Care Team | Description | +--------+ + + + + | 12/18/ | Results | Surgical Oncology | Emely, | | | 2012 | Only | at [facility] [address] | MD [address]uk[address]deep [address] | | | | | [address] Mail Code: | [address] [place], | | | | | [facility] | [place] [address] | | | | | and Healing, | [phone] | | | | | [address] | | | | | | [place], [place] | | | | | | [address] | | | | | | [phone] | | | +--------+ + + + [...] | | + +---------+ + + | [facility] DEPARTMENT OF | | | | | RADIOLOGY | | | | + +---------+ + + documented in this encounter Visit Diagnoses Not on filedocumented in this encounter"
--- OUTSIDE RECORDS SUMMARY | ~2018-12-04 | XMS | Encounter Summary ---
Demographics + + + | Address | [address] [place] [address] St | | | [place] [address] | + + + | Home Phone | | + + + | Preferred Language | Unknown | + + + | Marital Status | Single | + + + | Sabianist Affiliation | Unknown | + + + [...] Team Providers + +------+ + | Care New Client Banking Services Clerk Name | Role | Phone | [...] [address] | | | | | | [place], [place] | | | | | | [address] | | | +--------+ + + + [...]
--- OUTSIDE RECORDS SUMMARY | ~2018-12-04 | XMS | Encounter Summary ---
Demographics + + + | Address | [address] [place] [address] St | | | [place] [address] | + + + | Home Phone | | + + + | Preferred Language | Unknown | + + + | Marital Status | Single | + + + | Druze Affiliation | Unknown | + + + [...] Team Providers + +------+ + | Care Tool Crib Attendant Name | Role | Phone | [...] | | | | | [address], | [place], [place] | | | | | | [place] [address] | [address] | | | | | | Phone: | Phone: | | | | | | [phone] | [phone] | | | | | | Fax: | Fax: | | | | | | [phone] | [phone] | + +--------+ + + + + Encounter Details +--------+---------+ + + + | Date | Type | Department | Care Team | Description | +--------+---------+ + + + | 12/18/ | Office | Surgical Oncology | Emely, | Liver lesion | | 2012 | Visit | at [facility] [address] | MD [address]uk[address] | (Primary Dx) | | | | [address] Mail Code: | [place], | | | | | [facility] | [place] [address] | | | | | and Healing, | [phone] | | | | | [address] | | | | | | [place], [place] | | | | | | [address] | | | | | | [phone] | | | +--------+---------+ + + + [...] Please call if you have any questions. [phone] signed by Joelle Slaughter RN at 12/18/2012 [...] consult with the IR service here at [facility] for consideration of catheter based therapy. I suspect this would be more helpful if he had one or two domina nt lesions that were progressing. Plan: 1) Consult with [facility] IR Service to discuss potential catheter based treatments. 2) I have recommended that given the size and multiplicity of his liver lesions that he wo uld be best served with systemic therapy as long as he is getting some measure of disease co ntrol. SUKHDEEP LOPEZ MD Chief Division of Surgical Oncology [facility] regional coordinator [phone], [place] [address] documented in this encounter Plan of Treatment Not on filedocumented as of this encounter Visit Diagnoses + + | Diagnosis | + + | Liver lesion - Primary Other specified disorders of liver | + + documented in this encounter"
--- OUTSIDE RECORDS SUMMARY | ~2018-12-04 | XMS | Encounter Summary ---
Demographics + + + | Address | [address] [place] [address] St | | | [place] [address] | + + + | Home Phone | | + + + | Preferred Language | Unknown | + + + | Marital Status | Single | + + + | Orthodox Affiliation | Unknown | + + + [...] Team Providers + +------+ + | Care Paraprofessional Aide Name | Role | Phone | + +------+ + | Luis Bermudez MD | PCP | | + +------+ + Encounter Details +--------+ + + + + | Date | Type | Department | Care Team | Description | +--------+ + + + + | 12/17/ | Procedure | Diagnostic Imaging | | | | 2017 | Pass | Services at [facility] | | | | | | [address] | | | | | | [address]ja [address] Mailcode: | | | | | | [address] [facility] | | | | | | [place], [place] | | | | | | [address] | | | | | | [phone] | | | +--------+ + + + [...]
--- OUTSIDE RECORDS SUMMARY | ~2018-12-04 | XMS | Encounter Summary ---
Demographics + + + | Address | [address] [place] [address] St | | | [place] [address] | + + + | Home Phone | | + + + | Preferred Language | Unknown | + + + | Marital Status | Single | + + + | Samaritan Affiliation | Unknown | + + + [...] Team Providers + +------+ + | Care Furnace Cooler Name | Role | Phone | + +------+ + | Adama Patrick MD | PCP | | + +------+ + Encounter Details +--------+ + + + + | Date | Type | Department | Care Team | Description | +--------+ + + + + | 11/01/ | Document-Sc | UNKNOWN DEPARTMENT | Unknown . | | | 2012 | anned | [address] [facility] | | | | | | [address] | | | | | | [place], [place] | | | | | | [address] | | | +--------+ + + + [...]
[~2018-12-04 07:37] MED LIST changes: +FAMOTIDINE40 MG PO; +LEVOTHYROXINE50 MCG PO
--- OUTSIDE RECORDS SUMMARY | 2018-12-04 07:40 | XMS ---
PreManage Notification: GREY NOE Security Public Health Dietitian Events No recent Security Events currently on file CRITERIA MET - [facility] - Has Care Guidelines - PDMP - [facility] - 2 Visits in 30 Days CARE PROVIDERS PÉREZ EDOUARD Internal Medicine 11/05/2018-Current PHONE: Unknown Adama Patrick MD Treatment Current PHONE: Unknown [facility] Other [facility] PHONE: Unknown Yunior has no Care Guidelines for this patient. Care History Medical/Surgical 11/05/2018 [facility] - Patient is currently established with [facility]. If patient is seen in the ED during business hours. Please contact [facility] at [facility]. Care Recommendation: This patient has had 5 or more Emergency Department visits in the last 12 months.\T\nbsp; Patient requires education on the scope and purpose of the ED as an acute care provider not a Primary Care Provider and should not be utilized for chronic conditions.\T\nbsp; These are guidelines and the provider should exercise clinical judgment when providing care. E.D. VISIT COUNT (12 MO.) 2 PATRICIA Lay TOTAL 2 NOTE: Visits indicate total known visits. ED/UCC VISIT TRACKING (12 MO.) 12/04/2018 07:37 PATRICIA [facility] [place] TYPE: Emergency COMPLAINT: - ABD PAIN 11/04/2018 08:17 PAT[facility] [place] TYPE: Emergency COMPLAINT: - FLANK PAIN INPATIENT VISIT TRACKING (12 MO.) 11/04/2018 08:18 [facility] [place] TYPE: Observation COMPLAINT: - ANEMIA DIAGNOSES: - longterm (current) use of aspirin - Essential (primary) hypertension - Secondary and unspecified malignant neoplasm of lymph nodes of head, face and neck - Personal history of nicotine dependence - Gastro-esophageal reflux disease without esophagitis - Other intermediate manager (current) drug therapy - Allergy status to other drugs, medicaments and biological substances status - Anemia in neoplastic disease - Do not resuscitate - Hypothyroidism, unspecified - Secondary malignant neoplasm of bone - Allergy status to penicillin - Acute kidney failure, unspecified - Malignant neoplasm of colon, unspecified - Secondary malignant neoplasm of liver and intrahepatic bile duct - Neoplasm related pain (acute) (chronic) - Elevated white blood cell count, unspecified - Benign prostatic hyperplasia without lower urinary tract symptoms - Presence of aortocoronary bypass graft [email or web address]
[2018-12-04] MEDS ORDERED: IRON325 M1 PO (07:54)
[2018-12-04] MEDS ORDERED: ROXICODONE15 MG PO (10:32)
== END 2018-12-04 11:01 | disposition home or self-care (01) ==
LOC: ED 07:37
DX: C18.9 Malignant neoplasm of colon, unspecified (principal); C78.7 Secondary malignant neoplasm of liver and intrahepatic bile duct; Z87.891 Personal history of nicotine dependence; Z88.0 Allergy status to penicillin; Z88.8 Allergy status to other drugs, medicaments and biological substances; Z79.82 Long term (current) use of aspirin; Z79.899 Other long term (current) drug therapy
CPT/HCPCS: 80053; 81001; 85025; 85610; 99284